=== PATIENT | female | born 1965 | race African-American/Black ===

== ENCOUNTER 2017-03-30 12:57 | Emergency (ER) | payer MEDICAID ==
[~2017-03-30] VITALS: Ht 160 cm; Wt 135.2 kg
[~2017-03-30 12:57] MED LIST: AMLO5TAB2 PO; FUR20T PO; LOSA50TA6 PO; METF-370 PO
[2017-03-30 14:11] LABS: Basophils # (auto) 0.1 uL; Basophils % (auto) 0.7 % (0.0-2.0); Eosinophils # (auto) 0.2 uL; Nucleated Red Blood Cells % 0.1 %; White Blood Cell 8.3 10^3/uL (4.4-10.8)
[2017-03-30 14:13] LABS: Eosinophils % (auto) 2.8 % (0.0-7.0); Hematocrit 35.6 % (36.0-46.0); Hemoglobin 11.5 g/dL (12.2-16.2); Mean Corpuscular Hemoglobin 20.1 pg (28.0-32.0); Mean Corpuscular Hgb Conc. 32.2 g/dL (32.0-36.0); Mean Corpuscular Volume 62.6 fL (80.0-100.0); Monocytes # (auto) 0.4 uL; Monocytes % (auto) 4.3 % (0.0-12.0); Neutrophils # (auto) 5.6 uL; Neutrophils % (auto) 68.2 % (37.0-80.0); Platelet Count (auto) 211 10^3/uL (140-450); Red Cell Distribution Width 19.3 % (11.8-14.3)
[2017-03-30 14:42] LABS: Albumin 3.2 g/dL (3.4-5.0); Alkaline Phosphatase 109 U/L (45-117); Anion Gap 8 (5-15); Aspartate Aminotransferase 10 U/L (15-37); Bilirubin, Total 0.4 mg/dL (0.2-1.0); Blood Urea Nitrogen 10 mg/dL (7-18); Calcium 8.7 mg/dL (8.5-10.1); Carbon Dioxide 23 mmol/L (21-32); Chloride 106 mmol/L (98-107); GFR African American 66 mL/min; GFR Non-African American 55 mL/min; Glucose 136 mg/dL (74-106); Magnesium 1.8 mg/dL (1.6-2.6); Potassium 3.8 mmol/L (3.5-5.1); Sodium 137 mmol/L (136-145); Total Protein 7.7 g/dL (6.4-8.2)
[2017-03-30 15:21] VITALS: BP 144/88
[2017-03-30 17:01] LABS: Anisocytosis Slight; Hypochromia Marked; Platelet Estimate Adequate
[2017-03-30 17:02] LABS: Microcytosis Marked; Ovalocytes FEW; Stomatocytes Moderate
== END 2017-03-30 15:26 | disposition home or self-care (01) ==
LOC: ER 12:57
DX: J40 Bronchitis, not specified as acute or chronic (principal); E11.9 Type 2 diabetes mellitus without complications; I10 Essential (primary) hypertension; F12.10 Cannabis abuse, uncomplicated; Z87.891 Personal history of nicotine dependence; Z90.710 Acquired absence of both cervix and uterus; Z90.89 Acquired absence of other organs
CPT/HCPCS: 36415; 71020; 80053; 83735; 84484; 85025

== ENCOUNTER 2025-05-20 16:01 | Inpatient (IN) | payer MEDICAID ==
[~2025-05-20] VITALS: Ht 160 cm; Wt 162.3 kg
[~2025-05-20 16:01] MED LIST changes: +AMLO1TAB22 PO; -AMLO5TAB2 PO; -FUR20T PO; +FURO20TA4 PO; +LOSA-534 PO; -LOSA50TA6 PO
[2025-05-20 16:42] LABS: Mean Corpuscular Volume 64.0 fL (80.0-100.0); Nucleated Red Blood Cells % 0.1 %
[2025-05-20 16:44] LABS: Hematocrit 37.7 % (36.0-46.0); Hemoglobin 11.9 g/dL (12.2-16.2); Mean Corpuscular Hemoglobin 20.2 pg (28.0-32.0)
[2025-05-20 17:12] LABS: Alanine Aminotransferase 15 U/L (7-40); Albumin 4.2 g/dL (3.2-4.8); Anion Gap 11 (5-15); BUN/Creatinine Ratio 13.6 (10.0-20.0); Blood Urea Nitrogen 19 mg/dL (9-23); Carbon Dioxide 24 mmol/L (20-31); Potassium 4.0 mmol/L (3.5-5.1); Sodium 142 mmol/L (136-145); Total Protein 7.1 g/dL (5.7-8.2)
[2025-05-20 17:13] LABS: Alkaline Phosphatase 158 U/L (46-116); Bilirubin, Total 0.7 mg/dL (0.2-1.0); Calcium 8.7 mg/dL (8.7-10.4); Chloride 107 mmol/L (98-107); Glucose 154 mg/dL (74-106)
[2025-05-20 17:16] LABS: Ovalocytes MODERATE; Stomatocytes Few
--- NOTE | 2025-05-20 17:28 | DVH ---
CHEST RADIOGRAPH Indication: CHEST PAIN Technique: Single frontal view of the chest was obtained Comparison: None FINDINGS: Lines and Tubes: None Lungs: Bilateral prominent pulmonary vascular markings. Pleura: No effusion. No pneumothorax. Cardiomediastinal contours: Cardiomegaly Bones: No acute osseous abnormality. IMPRESSION: 1. Cardiomegaly and prominent pulmonary vascular markings bilaterally correlate clinically for possible congestive failure.
--- NOTE | 2025-05-20 17:34 | ED.PDOC ---
HPI Comments 60 y/o morbidly obese F presents with c/c of shortness of breath, cough, and chest pain x5 days. Chief Complaint: Chest Pain Time Seen by MD: 17:25 Primary Care Provider: duncan Allergies: Coded Allergies: Lisinopril (Verified Allergy, Unknown, 05/20/25) Morphine (Verified Allergy, Unknown, 05/20/25) Home Meds Reported Medications Metformin Hydrochloride (Metformin Hcl) 500 Mg Tab, 1000 MG PO BID 03/11/17 Furosemide (Furosemide) 20 Mg Tab, 1 TAB PO DAILY 03/11/17 Losartan Potassium (Losartan Potassium) 50 Mg Tab, 1 TAB PO DAILY 03/11/17 Amlodipine Besylate (Amlodipine Besylate) 5 Mg Tab, 1 TAB PO DAILY 03/11/17 Information Source: Patient Mode of Arrival: Ambulatory Severity: Moderate Timing: Days Duration: Since onset Location: Substernal Onset: At Rest, With Light Exertion, With Heavy Exertion Associated Signs and Symptoms: SOB Past Medical History PAST MEDICAL HISTORY: Anemia, DM, HTN Surgical History: , Hernia Repair, Hysterectomy [employer] History: Uterine Fibroids Family History Family History: Unobtainable Social History Smoker: Non-Smoker, Quit Less Than 1 Year Alcohol: Occasionally Drugs: Marijuana Lives In: Home Constitutional: denies: chills, diaphoresis, fatigue, fever, malaise, sweats, weakness, others EENTM: denies: blurred vision, double vision, ear bleeding, ear discharge, ear drainage, ear pain, ear ringing, eye pain, eye redness, hearing loss, mouth pain, mouth swelling, nasal discharge, nose bleeding, nose congestion, nose pain, photophobia, tearing, throat pain, throat swelling, voice changes, others Respiratory: reports: SOB at rest, shortness of breath, SOB with excertion; denies: cough, hemoptysis, orthopnea, stridor, wheezing, others Cardiovascular: reports: chest pain; denies: dizzy spells, diaphoresis, Dyspnea on exertion, edema, irregular heart beat, left arm pain, lightheadedness, palpitations, PND, syncope, others Gastrointestinal: denies: abdomen distended, abdominal pain, blood streaked bowels, constipated, diarrhea, dysphagia, difficulty swallowing, hematemesis, melena, nausea, poor appetite, poor fluid intake, rectal bleeding, rectal pain, vomiting, others Genitourinary: denies: abnormal vagina bleeding, burning, dyspareunia, dysuria, flank pain, frequency, hematuria, incontinence, pain, , vagina discharge, urgency, others Neurological: denies: dizziness, fainting, headache, left sided numbness, left sided weakness, numbness, paresthesia, pre-existing deficit, right sided numbness, right sided weakness, seizure, speech problems, tingling, tremors, weakness, others Musculoskeletal: denies: back pain, gout, joint pain, joint swelling, muscle pain, muscle stiffness, neck pain, others Integumetry: denies: bruises, change in color, change in hair/nails, dryness, laceration, lesions, lumps, rash, wounds, others Allergic/Immunocompromised: denies: Difficulty Healing, Frequent Infections, Hives, Itching, others Hematologic/Lymphatic: denies: anemia, blood clots, easy bleeding, easy bruising, swollen glands, others Endocrine: denies: excessive hunger, excessive sweating, excessive thirst, excessive urination, flushing, intolerance to cold, intolerance to heat, unexplained weight gain, unexplained weight loss, others Psychiatric: denies: anxiety, bipolar disorder, depression, hopeless, panic disorder, schizophrenia, sleepless, suicidal, others All Other Systems: Reviewed and Negative Physical Exam General Appearance: Moderate Distress, Obese HEENT: Normal ENT Inspection, Pharynx Normal, TMs Normal Neck: Full Range of Motion, Non-Tender, Normal, Normal Inspection Respiratory: Other (Coarse breath sounds) Cardiovascular: No Edema, No JVD, No Murmur, No Gallop, Normal Peripheral Pulses, Regular Rate/Rhythm Breast Exam: Deferred Gastrointestinal: No Organomegaly, Non Tender, No Pulsatile Mass, Normal Bowel Sounds, Soft Genitalia: Deferred Pelvic: Deferred Rectal: Deferred Extremities: No calf tenderness, Pedal edema Musculoskeletal : Apperance: Normal Neurologic: Alert, No Motor Deficits, No Sensory Deficits Cerebellar Function: NOT DONE Reflexes: NOT DONE Skin: Normal Color Peripheral Pulses: 3+ Radial (R), 3+ Radial (L) Lymphatic: No Adenopathy Was a procedure done? Was a procedure done?: No CP Differential Dx Differential Diagnosis: A-fib, A-Flutter, Angina, Anxiety / Panic Attack, Atrial Dysrhythmia, Electrolyte Disorder Differential Diagnosis: HTN Essential Differential Diagnosis: Chest Wall Pain, Gastritis, Pneumonia X-Ray, Labs, Meds, VS Vital Signs Date Time Temp Pulse Resp B/P (MAP) Pulse Ox O2 Delivery O2 Flow Rate FiO2 05/20/25 16:15 102 05/20/25 16:03 98.4 102 20 205/106 98 98.4 Lab Test 05/20/25 17:31 05/20/25 16:27 Range/Units Troponin I High Sensitivity Pending 41 *H </=34 ng/L White Blood Count 10.9 H 4.4-10.8 10^3/uL Red Blood Count 5.89 H 4.0-5.20 10^6/uL Hemoglobin 11.9 L 12.2-16.2 g/dL Hematocrit 37.7 36.0-46.0 % Mean Corpuscular Volume 64.0 L 80.0-100.0 fL Mean Corpuscular Hemoglobin 20.2 L 28.0-32.0 pg Mean Corpuscular Hemoglobin Concent 31.5 L 32.0-36.0 g/dL Red Cell Distribution Width 19.9 H 11.8-14.3 % Platelet Count 119 L 140-450 10^3/uL Mean Platelet Volume 9.5 6.9-10.8 fL Neutrophils (%) (Auto) 66.3 37.0-80.0 % Lymphocytes (%) (Auto) 20.0 10.0-50.0 % Monocytes (%) (Auto) 5.8 0.0-12.0 % Eosinophils (%) (Auto) 7.3 H 0.0-7.0 % Basophils (%) (Auto) 0.6 0.0-2.0 % Neutrophils # (Auto) 7.2 1.6-8.6 10 ^3/uL Lymphocytes # (Auto) 2.2 0.4-5.4 10 ^3/uL Monocytes # (Auto) 0.6 0-1.3 10 ^3/uL Eosinophils # (Auto) 0.8 0-0.8 10 ^3/uL Basophils # (Auto) 0.1 0-0.2 10 ^3/uL Nucleated Red Blood Cells 0.1 % Platelet Estimate Decrea Large Platelets Few Hypochromasia (manual) Moderate Microcytosis Moderate Ovalocytes Moderate Stomatocytes Few Sodium Level 142 136-145 mmol/L Potassium Level 4.0 3.5-5.1 mmol/L Chloride Level 107 98-107 mmol/L Carbon Dioxide Level 24 20-31 mmol/L Anion Gap 11 5-15 Blood Urea Nitrogen 19 9-23 mg/dL Creatinine 1.40 H 0.550-1.02 mg/dL Glomerular Filtration Rate Calc 43 >90 mL/min BUN/Creatinine Ratio 13.6 10.0-20.0 Serum Glucose 154 H 74-106 mg/dL Calcium Level 8.7 8.7-10.4 mg/dL Total Bilirubin 0.7 0.2-1.0 mg/dL Aspartate Amino Transferase (AST) 18 13-40 U/L Alanine Aminotransferase (ALT) 15 7-40 U/L Alkaline Phosphatase 158 H 46-116 U/L Total Protein 7.1 5.7-8.2 g/dL Albumin 4.2 3.2-4.8 g/dL [place] [id number] Ph: [phone] DIAGNOSTIC IMAGING Diagnostic Imaging Report : [id number] Signed PATIENT: SHENA TRIVEDI ACCT: [id number] UNIT: [id number] : 1965 LOC: ER ROOM / BED: / AGE / SEX: 60 / F ADM STATUS: REG ER SERVICE 1602 ORDERING PHYSICIAN: SHANTAL BISHOP MD PROCEDURE(s): CXRP - CHEST PORTABLE REASON: CHEST PAIN ORDER NUMBER(s): [id number], ACCESSION NUMBER(s): [id number] CHEST RADIOGRAPH Indication: CHEST PAIN Technique: Single frontal view of the chest was obtained Comparison: None FINDINGS: Lines and Tubes: None Lungs: Bilateral prominent pulmonary vascular markings. Pleura: No effusion. No pneumothorax. Cardiomediastinal contours: Cardiomegaly Bones: No acute osseous abnormality. IMPRESSION: 1. Cardiomegaly and prominent pulmonary vascular markings bilaterally correlate clinically for possible congestive failure. Patient alert. Came in because of shortness a breath. Vitals stable. Answering questions. Chest x-ray reviewed does show CHF. Was given Lasix. Cardiac marker elevated. Was given Lovenox. Explained to the patient. Continue monitoring. Time of 1ST Reevaluation: 17:50 Reevaluation 1ST: Unchanged Patient Education/Counseling: Diagnosis, Treatment Family Education/Counseling: No Family Present SEPSIS Sepsis Screen Date sepsis recognized/suspect: May 20, 2025 Time Sepsis recognized/suspect: 1606 Recent Procedure: No On Antibiotic Therapy: No Respiratory Rate >20: No Heart Rate >90: No Temp<36 C (96.8 F) or >38.3 C: No SBP <90 or MAP <65 mmHG: No New Acute Mental Status Change: No Is the patient on CPAP, BIPAP,: No Physician Orders Chest Portable (05/20/25 16:02) Urinalysis (05/20/25 16:02) Electrocardigram (05/20/25 16:02) Troponin-I Hs (05/20/25 17:02) Troponin-I Hs (05/20/25 19:02) Electrocardigram (05/20/25 17:02) Electrocardigram (05/20/25 19:02) Vital Signs Date Time Temp Pulse Resp B/P (MAP) Pulse Ox O2 Delivery O2 Flow Rate FiO2 05/20/25 16:15 102 05/20/25 16:03 98.4 102 20 205/106 98 98.4 Laboratory Tests Test 05/20/25 16:27 White Blood Count 10.9 10^3/uL (4.4-10.8) H Departure 1 Departure Time of Disposition: 17:49 Impression: Primary Impression: Congestive heart failure Qualified Codes: I50.43 - Acute on chronic combined systolic (congestive) and diastolic (congestive) heart failure Additional Impression: Demand ischemia Disposition: 09 ADMITTED INPATIENT Admit to: Med Surg Condition: Guarded Critical Care Note Critical Care Time?: Yes (90 min-critical care time only) Stability Stability form required: No Heart Score Heart Score: Heart Score Response (Comments) Value History Slightly Suspicious 0 EKG N/A 0 Age 45-64 1 Risk Factors 1 or 2 risk factors 1 Troponin >3 x's Normal limit 2 Total 4 I personally scribed for SHANTAL BISHOP MD ([email or web address]) on 05/20/25 at 17:34. Electronically submitted by Gertrude Tovar ([facility]). I personally scribed for SHANTAL BISHOP MD ([email or web address]) on 05/20/25 at 17:34. Electronically submitted by Gertrude Tovar ([email or web address]). I personally scribed for SHANTAL BISHOP MD ([email or web address]) on 05/20/25 at 17:53. Electronically submitted by Brad Ibrahim ([email or web address]). SHANTAL BISHOP MD May 20, 2025 17:34
[2025-05-20] MEDS: ENOXAPARIN SOD 150 MG/1 ML SYRINGE SC ONE (19:07)
[2025-05-20 22:15] VITALS: PULSE 73; RESP 20; O2SAT 100
[2025-05-20] MEDS: FUROSEMIDE 40 MG/4 ML VIAL IV ONE (22:18)
[2025-05-20] MEDS ORDERED: DOCUSATE SOD 100 MG CAP PO PRN (22:30)
[2025-05-20] MEDS ORDERED: NITROGLYCERIN 0.4 MG SL TAB SL PRN (22:30)
[2025-05-20] MEDS ORDERED: MORPHINE SULFATE INJ 2 MG/ml SYRG IV PRN ×2 (22:30)
[2025-05-20] MEDS ORDERED: TEMAZEPAM 15 MG CAP PO PRN (22:30)
[2025-05-21] MEDS: HYDROcodone-ACET 5/325MG TAB PO PRN (00:19)
[2025-05-21] MEDS: hydrALAZINE HCL 20 MG/ML VL IV PRN (00:58)
[2025-05-21] MEDS: hydrALAZINE HCL 20 MG/ML VL ONE (01:11)
[2025-05-21 02:05] LABS: Urine Protein, UAD Negative (Negative)
[2025-05-21 02:33] LABS: Nucleated Red Blood Cells % 0.1 %
[2025-05-21 02:35] LABS: Hematocrit 34.3 % (36.0-46.0); Hemoglobin 10.9 g/dL (12.2-16.2); Mean Corpuscular Hemoglobin 20.0 pg (28.0-32.0); Mean Corpuscular Volume 62.6 fL (80.0-100.0)
[2025-05-21 02:52] LABS: Alanine Aminotransferase 12 U/L (7-40); Albumin 4.0 g/dL (3.2-4.8); Anion Gap 9 (5-15); BUN/Creatinine Ratio 13.1 (10.0-20.0); Bilirubin, Total 0.8 mg/dL (0.2-1.0); Blood Urea Nitrogen 16 mg/dL (9-23); Carbon Dioxide 24 mmol/L (20-31); Potassium 3.6 mmol/L (3.5-5.1); Sodium 140 mmol/L (136-145); Total Protein 7.1 g/dL (5.7-8.2)
[2025-05-21 02:55] LABS: Alkaline Phosphatase 142 U/L (46-116); Calcium 8.5 mg/dL (8.7-10.4); Chloride 107 mmol/L (98-107); Glucose 166 mg/dL (74-106)
[2025-05-21 03:21] LABS: Ovalocytes MODERATE; Stomatocytes Few
[2025-05-21] MEDS: HYDROmorphone HCL 2 MG/ML VL/or syr IV PRN (04:21)
[2025-05-21] MEDS: ONDANSETRON HCL 4 MG/2 ML VIAL IV PRN (04:21)
--- NOTE | 2025-05-21 07:12 | ECG ---
[facility] Test Date: 2025-05-20 Test Time: 16:15:27 Pat Name: SHENA TRIVEDI Department: ED Room: 0290T Gender: F Cloth Piecer: NIDIA : 1965 Requested By: SHANTAL BISHOP Order Number: [id number] Reading MD: Leonel Foss Measurements Intervals [place] Rate: 102 P: 74 IN: 166 QRS: 36 QRSD: 78 T: 63 QT: 382 QTc: 498 Interpretive Statements Sinus tachycardia Borderline prolonged QT interval Electronically Signed On 05-23-2025 15:01:07 PST by Leonel Foss Please click the below link to view image of tracing.
[2025-05-21 08:57] VITALS: BP 175/104; PULSE 79; RESP 17; TEMP 98.6; O2SAT 99
--- NOTE | 2025-05-21 09:19 | DVHINCON2 ---
Date of service: May 21, 2025 History of Present Illness HPI Patient is a 60-year-old female who presented to the hospital with shortness of breath/cough and atypical chest discomfort (pleuritic). She mentions that she came to [place] around 5 days ago. She did take a bath and walked outside and started to feel bad including shortness of breath and cough. Cough was nonproductive. She decided to come to the hospital for its worsening. She mentions that [place] has been out of state for many years. Did not have insurance at out of state and was not following with any regular physicians. Does have baseline history of hypertension and diabetes. Has not been taking any medications regularly. Cardiology is involved for cardiac aspects of care. She mentions that few years ago while in [place], she was told she may have heart failure. But when she saw a vine fruit farming supervisor, she was told that heart failure is not confirmed. Does not take medications regularly. Does smoke cigarettes and marijuana. 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 Mentions dyspnea on exertion. Mentions some leg swellings occasionally. Mentions occasional orthopnea and PND. Home Meds Reported Medications Metformin Hydrochloride (Metformin Hcl) 500 Mg Tab, 1000 MG PO BID 03/11/17 Furosemide (Furosemide) 20 Mg Tab, 1 TAB PO DAILY 03/11/17 Losartan Potassium (Losartan Potassium) 50 Mg Tab, 1 TAB PO DAILY 03/11/17 Amlodipine Besylate (Amlodipine Besylate) 5 Mg Tab, 1 TAB PO DAILY 03/11/17 Past Medical History Others Past medical history includes morbid obesity, hypertension, diabetes mellitus, old history of anemia, old history of repeated pneumonia, history of uterine fibroid/hysterectomy, status post and hernia repair. 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 There is questionable history of heart failure. Does smoke cigarettes/marijuana. Stopped meth in 2018 Family history includes hypertension and diabetes in mother and father. Father had lung cancer and mother had breast cancer. Patient Family History: Family history: Hypertension G8 MOTHER Smoker: Positive Drugs: Marijuana Review of Systems Constitutional: Diaphoresis, Weakness Ears, Nose, & Throat: No symptom reported Pulmonary/Respiratory: Dyspnea, Cough Cardiovascular: Chest Pain All Other Systems Fourteen point review of system was performed. Relevant findings as per above and as per HPI. Otherwise negative. H&P Exam Vital Signs Vital Signs Date Time Temp Pulse Resp B/P (MAP) Pulse Ox O2 Delivery O2 Flow Rate FiO2 05/21/25 08:00 Nasal Cannula* 2 28 05/21/25 08:00 98.4 92 15 158/88 (111) 100 98.4 General Appeara: Well developed, Obese Head Exam: Normal inspection Eye Exam: bilateral eye PERRL Mouth: Normal Inspection Pulmonary/Respiratory: Rales, Rhonci, Wheezing Cardiovascular/Chest: Normal inspection, Regular rate, Systolic murmur Peripheral Pulses: 2+ carotid (R), 2+ carotid (L), 2+ femoral (R), 2+ femoral (L), 2+ dorsalis pedis (R), 2+ dorsalis pedis (L) Abdominal Exam: Normal bowel sounds, Soft Neuro/Mental St: Alert, Oriented Appearance: Appropriate appearance Eye contact/ Speech: Cooperative Labs/Xrays Labs Test 05/21/25 02:12 05/21/25 01:47 05/20/25 21:07 Range/Units White Blood Count 8.4 4.4-10.8 10^3/uL Red Blood Count 5.48 H 4.0-5.20 10^6/uL Hemoglobin 10.9 L 12.2-16.2 g/dL Hematocrit 34.3 L 36.0-46.0 % Mean Corpuscular Volume 62.6 L 80.0-100.0 fL Mean Corpuscular Hemoglobin 20.0 L 28.0-32.0 pg Mean Corpuscular Hemoglobin Concent 31.9 L 32.0-36.0 g/dL Red Cell Distribution Width 19.5 H 11.8-14.3 % Platelet Count 188 140-450 10^3/uL Mean Platelet Volume 9.0 6.9-10.8 fL Neutrophils (%) (Auto) 62.5 37.0-80.0 % Lymphocytes (%) (Auto) 23.4 10.0-50.0 % Monocytes (%) (Auto) 5.3 0.0-12.0 % Eosinophils (%) (Auto) 7.8 H 0.0-7.0 % Basophils (%) (Auto) 1.0 0.0-2.0 % Neutrophils # (Auto) 5.3 1.6-8.6 10 ^3/uL Lymphocytes # (Auto) 2.0 0.4-5.4 10 ^3/uL Monocytes # (Auto) 0.4 0-1.3 10 ^3/uL Eosinophils # (Auto) 0.7 0-0.8 10 ^3/uL Basophils # (Auto) 0.1 0-0.2 10 ^3/uL Nucleated Red Blood Cells 0.1 % Platelet Estimate Adequate Large Platelets Few Hypochromasia (manual) Moderate Microcytosis Moderate Ovalocytes Moderate Stomatocytes Few Sodium Level 140 136-145 mmol/L Potassium Level 3.6 3.5-5.1 mmol/L Chloride Level 107 98-107 mmol/L Carbon Dioxide Level 24 20-31 mmol/L Anion Gap 9 5-15 Blood Urea Nitrogen 16 9-23 mg/dL Creatinine 1.22 H 0.550-1.02 mg/dL Glomerular Filtration Rate Calc 50 >90 mL/min BUN/Creatinine Ratio 13.1 10.0-20.0 Serum Glucose 166 H 74-106 mg/dL Calcium Level 8.5 L 8.7-10.4 mg/dL Total Bilirubin 0.8 0.2-1.0 mg/dL Aspartate Amino Transferase (AST) 22 13-40 U/L Alanine Aminotransferase (ALT) 12 7-40 U/L Alkaline Phosphatase 142 H 46-116 U/L Total Protein 7.1 5.7-8.2 g/dL Albumin 4.0 3.2-4.8 g/dL Urine Color Colorless Yellow Urine Clarity Clear Clear Urine pH 6.0 5.0-9.0 Urine Specific [place] 1.007 1.001-1.035 Urine Protein Negative Negative Urine Ketones Negative Negative Urine Blood Negative Negative /uL Urine Nitrite Negative Negative Urine Bilirubin Negative Negative Urine Urobilinogen Normal Negative mg/dL Urine Leukocyte Esterase Negative Negative /uL Urine RBC <1 0 - 4 /hpf Urine Microscopic WBC 0-5 /HPF Urine Squamous Epithelial Cells Few <5 /hpf Urine Bacteria None seen None Seen /hpf Urine Glucose Normal Normal mg/dL Troponin I High Sensitivity 45 *H </=34 ng/L Assessment/Plan Plan Patient is a 60-year-old female who presented to the hospital with shortness of breath/cough and atypical chest discomfort (pleuritic). She mentions that she came to [place] around 5 days ago. She did take a bath and walked outside and started to feel bad including shortness of breath and cough. Cough was nonproductive. She decided to come to the hospital for its worsening. She mentions that she has been out of state for many years. Did not have insurance at [place] state and was not following with any regular physicians. Does have baseline history of hypertension and diabetes. Has not been taking any medications regularly. Cardiology is involved for cardiac aspects of care. She mentions that few years ago while in [place], she was told she may have heart failure. But when she saw a vine fruit farming supervisor, she was told that heart failure is not confirmed. Does not take medications regularly. Does smoke cigarettes and marijuana. 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 Mentions dyspnea on ex ertion. Mentions some leg swellings occasionally. Mentions occasional orthopnea and PND. Morbidly obese. Sitting in bed and not in acute distress. No gross JVD. Mucosa is pink. No carotid bruit. Scattered rhonchi and wheezing it is heard in the lungs. Crackles can be heard in the lower part of the lungs. Cardiac: Regular, no thrill. Systolic murmur 3/6 in the apex is heard. No gross gallop. Bowel sounds are positive. No gross mass. Can not comment on the liver size secondary to body habitus. Extremities reveal 2+ edema bilaterally. Dorsalis pedis is 2+ bilateral. There was no gross lateralized neurologic deficit. Past medical history includes morbid obesity, hypertension, diabetes mellitus, old history of anemia, old history of repeated pneumonia, history of uterine fibroid/hysterectomy, status post and hernia repair. 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 There is questionable history of heart failure. Does smoke cigarettes/marijuana. Stopped meth in 2018 Family history includes hypertension and diabetes in mother and father. Father had lung cancer and mother had breast cancer. Hemoglobin: 11.9 - 10.9 WBC: 10.9 - 8.4 Creatinine: 1.4 - 1.22 Potassium: 4.0 - 3.6 Troponin (high sensitive): 41 - 44 - 45 Chest x-ray revealed: IMPRESSION: 1. Cardiomegaly and prominent pulmonary vascular markings bilaterally correlate clinically for possible congestive failure. EKG revealed sinus tachycardia with nonspecific ST-T changes Tele reveals sinus tachycardia Patient is a 60-year-old morbidly obese female who presented with 5 days of nonproductive cough. Presentation questions bronchitis. Her past history includes diabetes and noncompliance. There is questionable history of heart failure. Does not follow with physicians regularly. In exam there are findings questioning component of heart failure. High sensitive troponin has been minimally elevated (flat). Presentation is not considered ACS. Abnormal troponin most likely reflects demand physiology. Intercurrent URI could have contributed to some type of acute on chronic heart failure. Acute on chronic heart failure (what type?) URI Morbid obesity Hypertension Diabetes mellitus Noncompliance with medication and followups Cardiac suggestion for management: Manage on telemetry IV diuresis Follow-up electrolytes and kidney function tests and correct abnormalities. Keep potassium above 4 and magnesium above 2 Request for D-dimer. If D-dimer is abnormal request for CT angio of the lungs a nd venous Doppler of lower extremities. If D-dimer is normal, request for CT of the chest without contrast. Echocardiogram BNP/pro BNP Send urine for drug screen Evaluation and management of URI/bronchitis as per primary team Lifestyle and risk factor modifications. Patient was counseled to be compliant with medications and followups. Patient was counseled to avoid substance abuse Further evaluation and management depends on the above and clinical course Thank you for consultation A total of 75 minutes was spent reviewing the patient record, examining the patient, making a diagnostic and therapeutic plan, discussing this plan with medical personnel, following up on diagnostic studies and following the patient for clinical stability excluding any and all procedures. At least 50% of this time was spent in direct, [id number] contact. Thank you for allowing me to participate in this patient's care. Further recommendations will depend on patient's clinical course. Please do not hesitate to contact me if you have any questions or concerns. This medical document was created using electronic medical record system with [employer] computerized dictation system. Although this document has been carefully reviewed, there may still be some phonetic and typographical errors. These areas are purely typographical due to the imperfection of the software programs, and do not reflect any compromise in the patient's medical care. Plan discussed with: Patient, Other (nurse) SUZY SCHULTZ MD May 21, 2025 09:19
--- NOTE | 2025-05-21 09:34 | DVHHP2 ---
Patient Family History: Family history: Hypertension G8 MOTHER Allergies: Coded Allergies: Lisinopril (Verified Allergy, Unknown, 05/20/25) Morphine (Verified Allergy, Unknown, 05/20/25) Home Meds Reported Medications Metformin Hydrochloride (Metformin Hcl) 500 Mg Tab, 1000 MG PO BID 03/11/17 Furosemide (Furosemide) 20 Mg Tab, 1 TAB PO DAILY 03/11/17 Losartan Potassium (Losartan Potassium) 50 Mg Tab, 1 TAB PO DAILY 03/11/17 Amlodipine Besylate (Amlodipine Besylate) 5 Mg Tab, 1 TAB PO DAILY 03/11/17 Current Medications Current Medications Medications (Trade) Dose Ordered Sig/Neeraj Route PRN Reason Start Time Stop Time Status Last Admin Acetaminophen (Tylenol Tablet) 325 mg Q4HP PRN PO MILD PAIN (1-3 PAIN SCALE) 05/20/25 22:30 Acetaminophen/ Hydrocodone Bitart ([place] 5/325MG Tab) 1 tab Q4HP PRN PO MODERATE PAIN (4-6 PAIN SCALE) 05/20/25 22:30 05/21/25 00:19 Temazepam (Restoril) 15 mg QHSP PRN PO FOR INSOMNIA 05/20/25 22:30 Ondansetron HCl (Zofran) 4 mg Q4HP PRN IV NAUSEA / VOMITING 05/20/25 22:30 05/21/25 04:21 Docusate Sodium (Colace Capsule) 100 mg BIDPRN PRN PO FOR CONSTIPATION 05/20/25 22:30 Enoxaparin Sodium (Lovenox) 40 mg Q24H SC 05/21/25 21:00 Morphine Sulfate 2 mg Q4HPRN PRN IV SEVERE PAIN (7-10 PAIN SCALE) 05/20/25 22:30 05/21/25 00:55 DC Nitroglycerin (Ntrostat Sublingual) 0.4 mg Q5MINP PRN SL FOR CHEST PAIN 05/20/25 22:30 Morphine Sulfate 2 mg Q30M PRN IV FOR CHEST PAIN 05/20/25 22:30 05/21/25 00:55 DC Hydralazine HCl (Apresoline Injection) 10 mg Q4HPRN PRN IV SBP>160 05/21/25 01:00 05/21/25 05:06 Hydromorphone HCl (Dilaudid Injection) 0.5 mg Q4HPRN PRN IV PAIN SCALE 7 THRU 10 05/21/25 01:00 05/21/25 04:21 Furosemide (Lasix Injection) 40 mg BIDD IV 05/21/25 18:00 Losartan Potassium (Cozaar Tablet) 50 mg DAILY PO 05/21/25 10:00 Pantoprazole Sodium (Protonix Tablet) 40 mg DAILY@0600 PO 05/21/25 09:45 Vital Signs Vital Signs Date Time Temp Pulse Resp B/P (MAP) Pulse Ox O2 Delivery O2 Flow Rate FiO2 05/21/25 08:00 Nasal Cannula* 2 28 05/21/25 08:00 69 05/21/25 08:00 98.4 15 158/88 (111) 100 98.4 SEPSIS Sepsis Screen Date sepsis recognized/suspect: May 21, 2025 Time Sepsis recognized/suspect: 799 Recent Procedure: No On Antibiotic Therapy: No Respiratory Rate >20: No Heart Rate >90: No Temp<36 C (96.8 F) or >38.3 C: No SBP <90 or MAP <65 mmHG: No New Acute Mental Status Change: No Is the patient on CPAP, BIPAP,: No Physician Orders Chest Portable (05/20/25 16:02) Electrocardigram (05/20/25 17:02) Electrocardigram (05/20/25 19:02) Admit (05/20/25 22:17) Acetaminophen Tablet (Tylenol Tablet) (05/20/25 22:30) Hydrocodone-Acet 5/325mg Tab ([place] 5/32 (05/20/25 22:30) Temazepam (Restoril) (05/20/25 22:30) Ondansetron Hcl (Zofran) (05/20/25 22:30) Docusate Sodium Capsule (Colace Capsule) (05/20/25 22:30) Enoxaparin Sodium (Lovenox) (05/21/25 21:00) Cardiac Diet-2gna,Lofat,Lochol (05/21/25 Breakfast) Nitroglycerin Sublingual (Ntrostat Subli (05/20/25 22:30) Stat Ekg For Chest Pain (05/20/25 22:17) Notify Md Of Changes From Base (05/20/25 22:17) Garnett Mechanic For 24 Hours (05/20/25 22:17) Emergency Dysrhythmia Protocol (05/20/25 22:17) Rhythm Strips Once Every Shift (05/20/25 22:17) Oxygen By Nasal Cannula (05/20/25 22:17) * Cardiology Consult (05/20/25 22:18) Hydralazine Injection (Apresoline Inject (05/21/25 01:00) Hydromorphone Injection (Dilaudid Inject (05/21/25 01:00) Echo 2d Mode Cardiac Dop (05/21/25 08:58) Furosemide Injection (Lasix Injection) (05/21/25 18:00) Communication Order (05/21/25 08:58) Losartan Tablet (Cozaar Tablet) (05/21/25 10:00) Pantoprazole Tablet (Protonix Tablet) (05/21/25 09:45) Vital Signs Date Time Temp Pulse Resp B/P (MAP) Pulse Ox O2 Delivery O2 Flow Rate FiO2 05/21/25 08:00 Nasal Cannula* 2 28 05/21/25 08:00 69 05/21/25 08:00 98.4 92 15 158/88 (111) 100 98.4 05/21/25 05:06 168/89 05/21/25 05:00 78 24 168/89 (115) 95 05/21/25 04:51 77 23 168/89 05/21/25 04:21 64 14 190/96 05/21/25 03:00 78 15 157/74 (101) 97 05/21/25 01:10 71 19 195/100 (131) 100 05/21/25 00:58 199/96 05/21/25 00:29 98.0 81 32 206/89 (128) 93 98.0 05/21/25 00:29 Room Air* 0 21 05/20/25 22:26 98.0 73 20 166/111 (129) 98.0 05/20/25 22:18 166/111 05/20/25 22:15 73 20 100 Room Air* 0 21 05/20/25 21:31 98.0 89 12 160/90 (113) 99 98.0 05/20/25 18:20 97.6 91 24 217/96 (136) 100 97.6 05/20/25 18:20 91 24 100 Room Air 05/20/25 16:15 102 05/20/25 16:03 98.4 102 20 205/106 98 98.4 Laboratory Tests Test 05/20/25 16:27 05/21/25 02:12 White Blood Count 10.9 10^3/uL (4.4-10.8) H 8.4 10^3/uL (4.4-10.8) Medications Medications Dose Ordered Sig/Neeraj Route Start Time Stop Time Status Last Admin Dose Admin Acetaminophen/ Hydrocodone Bitart 1 tab Q4HP PRN PO 05/20/25 22:30 05/21/25 00:19 Hydralazine HCl 10 mg Q4HPRN PRN IV 05/21/25 01:00 05/21/25 05:06 Hydromorphone HCl 0.5 mg Q4HPRN PRN IV 05/21/25 01:00 05/21/25 04:21 Ondansetron HCl 4 mg Q4HP PRN IV 05/20/25 22:30 05/21/25 04:21 Results Labs Test 05/21/25 09:17 05/21/25 02:12 05/21/25 01:47 05/20/25 21:07 Range/Units D-Dimer, Quantitative 0.51 H 0.0-0.49 mg/L FEU B-Type Natriuretic Peptide 59.39 0-100 pg/mL White Blood Count 8.4 4.4-10.8 10^3/uL Red Blood Count 5.48 H 4.0-5.20 10^6/uL Hemoglobin 10.9 L 12.2-16.2 g/dL Hematocrit 34.3 L 36.0-46.0 % Mean Corpuscular Volume 62.6 L 80.0-100.0 fL Mean Corpuscular Hemoglobin 20.0 L 28.0-32.0 pg Mean Corpuscular Hemoglobin Concent 31.9 L 32.0-36.0 g/dL Red Cell Distribution Width 19.5 H 11.8-14.3 % Platelet Count 188 140-450 10^3/uL Mean Platelet Volume 9.0 6.9-10.8 fL Neutrophils (%) (Auto) 62.5 37.0-80.0 % Lymphocytes (%) (Auto) 23.4 10.0-50.0 % Monocytes (%) (Auto) 5.3 0.0-12.0 % Eosinophils (%) (Auto) 7.8 H 0.0-7.0 % Basophils (%) (Auto) 1.0 0.0-2.0 % Neutrophils # (Auto) 5.3 1.6-8.6 10 ^3/uL Lymphocytes # (Auto) 2.0 0.4-5.4 10 ^3/uL Monocytes # (Auto) 0.4 0-1.3 10 ^3/uL Eosinophils # (Auto) 0.7 0-0.8 10 ^3/uL Basophils # (Auto) 0.1 0-0.2 10 ^3/uL Nucleated Red Blood Cells 0.1 % Platelet Estimate Adequate Large Platelets Few Hypochromasia (manual) Moderate Microcytosis Moderate Ovalocytes Moderate Stomatocytes Few Sodium Level 140 136-145 mmol/L Potassium Level 3.6 3.5-5.1 mmol/L Chloride Level 107 98-107 mmol/L Carbon Dioxide Level 24 20-31 mmol/L Anion Gap 9 5-15 Blood Urea Nitrogen 16 9-23 mg/dL Creatinine 1.22 H 0.550-1.02 mg/dL Glomerular Filtration Rate Calc 50 >90 mL/min BUN/Creatinine Ratio 13.1 10.0-20.0 Serum Glucose 166 H 74-106 mg/dL Calcium Level 8.5 L 8.7-10.4 mg/dL Total Bilirubin 0.8 0.2-1.0 mg/dL Aspartate Amino Transferase (AST) 22 13-40 U/L Alanine Aminotransferase (ALT) 12 7-40 U/L Alkaline Phosphatase 142 H 46-116 U/L Total Protein 7.1 5.7-8.2 g/dL Albumin 4.0 3.2-4.8 g/dL Triglycerides Level 116 < 150 mg/dL Cholesterol Level 162 < 200 mg/dL LDL Cholesterol 121 H < 100 mg/dL HDL Cholesterol 29 L 40-59 mg/dL Urine Color Colorless Yellow Urine Clarity Clear Clear Urine pH 6.0 5.0-9.0 Urine Specific [place] 1.007 1.001-1.035 Urine Protein Negative Negative Urine Ketones Negative Negative Urine Blood Negative Negative /uL Urine Nitrite Negative Negative Urine Bilirubin Negative Negative Urine Urobilinogen Normal Negative mg/dL Urine Leukocyte Esterase Negative Negative /uL Urine RBC <1 0 - 4 /hpf Urine Microscopic WBC 0-5 /HPF Urine Squamous Epithelial Cells Few <5 /hpf Urine Bacteria None seen None Seen /hpf Urine Glucose Normal Normal mg/dL Urine Opiates Screen Neg NEGATIVE Urine Fentanyl Screen Neg NEGATIVE Urine Barbiturates Screen Neg NEGATIVE Urine Phencyclidine Screen Neg NEGATIVE Urine Amphetamines Screen Neg NEGATIVE Urine Benzodiazepines Screen Neg NEGATIVE Urine Cocaine Screen Neg NEGATIVE Urine Cannabinoids Screen Pos NEGATIVE Troponin I High Sensitivity 45 *H </=34 ng/L TIA GARCIA BIOCHEMISTRY TEACHER May 21, 2025 09:34
--- NOTE | 2025-05-21 09:34 | DVHPN2 ---
Progress Note - Dictate vital signs Vital Sign Date Time Temp Pulse Resp B/P (MAP) Pulse Ox O2 Delivery O2 Flow Rate FiO2 05/21/25 08:00 Nasal Cannula* 2 28 05/21/25 08:00 69 05/21/25 08:00 98.4 15 158/88 (111) 100 98.4 medications Current Medications Medications Dose Ordered Sig/Neeraj Route Start Time Stop Time Status Last Admin Dose Admin Acetaminophen 325 mg Q4HP PRN PO 05/20/25 22:30 Acetaminophen/ Hydrocodone Bitart 1 tab Q4HP PRN PO 05/20/25 22:30 05/21/25 00:19 Temazepam 15 mg QHSP PRN PO 05/20/25 22:30 Ondansetron HCl 4 mg Q4HP PRN IV 05/20/25 22:30 05/21/25 04:21 Docusate Sodium 100 mg BIDPRN PRN PO 05/20/25 22:30 Enoxaparin Sodium 40 mg Q24H SC 05/21/25 21:00 Nitroglycerin 0.4 mg Q5MINP PRN SL 05/20/25 22:30 Hydralazine HCl 10 mg Q4HPRN PRN IV 05/21/25 01:00 05/21/25 05:06 Hydromorphone HCl 0.5 mg Q4HPRN PRN IV 05/21/25 01:00 05/21/25 04:21 Furosemide 40 mg BIDD IV 05/21/25 18:00 laboratory and microbiology Laboratory Tests 05/21/25 02:12 Test 05/21/25 02:12 Range/Units Serum Glucose 166 H 74-106 mg/dL TIA GARCIA ETL BI DEVELOPER May 21, 2025 09:34
[2025-05-21] MEDS: PANTOPRAZOLE 40 MG TAB PO SCH (09:45)
[2025-05-21 09:51] LABS: Triglycerides 116 mg/dL (< 150)
[2025-05-21 09:53] LABS: Amphetamine Screen, Urine Neg (NEGATIVE); Barbiturate Scree,Urine Neg (NEGATIVE); Benzodiazephine Screen, Urine Neg (NEGATIVE); Cannabinoid Screen, Urine Pos (NEGATIVE); Cocaine Screen, Urine Neg (NEGATIVE); Opiate Scree,Urine Neg (NEGATIVE); Phencyclidine Screen, Urine Neg (NEGATIVE)
[2025-05-21 09:54] LABS: Cholesterol 162 mg/dL (< 200); HDL Cholesterol 29 mg/dL (40-59)
[2025-05-21] MEDS: LOSARTAN POTASSIUM 50 MG TAB PO SCH (10:00)
--- NOTE | 2025-05-21 11:50 | DVHHP2 ---
History of Present Illness Reason for Visit: Shortness of breaths History of Present Illness 60-year-old female comes to the hospital for 3-4 days of shortness of breaths and congestion and having a cold Cardiovascular: HTN Endocrine: Diabetes Review of Systems Respiratory: Cough, Shortness of breath Allergies: Coded Allergies: Lisinopril (Verified Allergy, Unknown, 05/20/25) Morphine (Verified Allergy, Unknown, 05/20/25) Medications Current Medications Medications Dose Ordered Sig/Neeraj Route Start Time Stop Time Status Last Admin Dose Admin Acetaminophen 325 mg Q4HP PRN PO 05/20/25 22:30 Acetaminophen/ Hydrocodone Bitart 1 tab Q4HP PRN PO 05/20/25 22:30 05/21/25 00:19 1 TAB Temazepam 15 mg QHSP PRN PO 05/20/25 22:30 Ondansetron HCl 4 mg Q4HP PRN IV 05/20/25 22:30 05/21/25 04:21 4 MG Docusate Sodium 100 mg BIDPRN PRN PO 05/20/25 22:30 Enoxaparin Sodium 40 mg Q24H SC 05/21/25 21:00 Nitroglycerin 0.4 mg Q5MINP PRN SL 05/20/25 22:30 Hydralazine HCl 10 mg Q4HPRN PRN IV 05/21/25 01:00 05/21/25 10:58 10 MG Hydromorphone HCl 0.5 mg Q4HPRN PRN IV 05/21/25 01:00 05/21/25 10:50 0.5 MG Furosemide 40 mg BIDD IV 05/21/25 18:00 Losartan Potassium 50 mg DAILY PO 05/21/25 10:00 05/21/25 10:00 50 MG Pantoprazole Sodium 40 mg DAILY@0600 PO 05/21/25 09:45 05/21/25 09:45 40 MG Exam Vital Signs Vital Signs Date Time Temp Pulse Resp B/P (MAP) Pulse Ox O2 Delivery O2 Flow Rate FiO2 05/21/25 10:58 175/104 05/21/25 10:50 79 17 05/21/25 08:00 Nasal Cannula* 2 28 05/21/25 08:00 98.4 100 98.4 General Appearance: Alert, Oriented X3, Cooperative, No acute distress Respiratory: Clear to auscultation, Normal air movement Cardiovascular: Regular rate, Normal S1, Normal S2 Abdominal: Normal bowel sounds, Soft, No tenderness Extremities: No edema Labs/Xrays Labs Test 05/21/25 09:17 05/21/25 02:12 05/21/25 01:47 05/20/25 21:07 Range/Units D-Dimer, Quantitative 0.51 H 0.0-0.49 mg/L FEU B-Type Natriuretic Peptide 59.39 0-100 pg/mL White Blood Count 8.4 4.4-10.8 10^3/uL Red Blood Count 5.48 H 4.0-5.20 10^6/uL Hemoglobin 10.9 L 12.2-16.2 g/dL Hematocrit 34.3 L 36.0-46.0 % Mean Corpuscular Volume 62.6 L 80.0-100.0 fL Mean Corpuscular Hemoglobin 20.0 L 28.0-32.0 pg Mean Corpuscular Hemoglobin Concent 31.9 L 32.0-36.0 g/dL Red Cell Distribution Width 19.5 H 11.8-14.3 % Platelet Count 188 140-450 10^3/uL Mean Platelet Volume 9.0 6.9-10.8 fL Neutrophils (%) (Auto) 62.5 37.0-80.0 % Lymphocytes (%) (Auto) 23.4 10.0-50.0 % Monocytes (%) (Auto) 5.3 0.0-12.0 % Eosinophils (%) (Auto) 7.8 H 0.0-7.0 % Basophils (%) (Auto) 1.0 0.0-2.0 % Neutrophils # (Auto) 5.3 1.6-8.6 10 ^3/uL Lymphocytes # (Auto) 2.0 0.4-5.4 10 ^3/uL Monocytes # (Auto) 0.4 0-1.3 10 ^3/uL Eosinophils # (Auto) 0.7 0-0.8 10 ^3/uL Basophils # (Auto) 0.1 0-0.2 10 ^3/uL Nucleated Red Blood Cells 0.1 % Platelet Estimate Adequate Large Platelets Few Hypochromasia (manual) Moderate Microcytosis Moderate Ovalocytes Moderate Stomatocytes Few Sodium Level 140 136-145 mmol/L Potassium Level 3.6 3.5-5.1 mmol/L Chloride Level 107 98-107 mmol/L Carbon Dioxide Level 24 20-31 mmol/L Anion Gap 9 5-15 Blood Urea Nitrogen 16 9-23 mg/dL Creatinine 1.22 H 0.550-1.02 mg/dL Glomerular Filtration Rate Calc 50 >90 mL/min BUN/Creatinine Ratio 13.1 10.0-20.0 Serum Glucose 166 H 74-106 mg/dL Calcium Level 8.5 L 8.7-10.4 mg/dL Total Bilirubin 0.8 0.2-1.0 mg/dL Aspartate Amino Transferase (AST) 22 13-40 U/L Alanine Aminotransferase (ALT) 12 7-40 U/L Alkaline Phosphatase 142 H 46-116 U/L Total Protein 7.1 5.7-8.2 g/dL Albumin 4.0 3.2-4.8 g/dL Triglycerides Level 116 < 150 mg/dL Cholesterol Level 162 < 200 mg/dL LDL Cholesterol 121 H < 100 mg/dL HDL Cholesterol 29 L 40-59 mg/dL Urine Color Colorless Yellow Urine Clarity Clear Clear Urine pH 6.0 5.0-9.0 Urine Specific [place] 1.007 1.001-1.035 Urine Protein Negative Negative Urine Ketones Negative Negative Urine Blood Negative Negative /uL Urine Nitrite Negative Negative Urine Bilirubin Negative Negative Urine Urobilinogen Normal Negative mg/dL Urine Leukocyte Esterase Negative Negative /uL Urine RBC <1 0 - 4 /hpf Urine Microscopic WBC 0-5 /HPF Urine Squamous Epithelial Cells Few <5 /hpf Urine Bacteria None seen None Seen /hpf Urine Glucose Normal Normal mg/dL Urine Opiates Screen Neg NEGATIVE Urine Fentanyl Screen Neg NEGATIVE Urine Barbiturates Screen Neg NEGATIVE Urine Phencyclidine Screen Neg NEGATIVE Urine Amphetamines Screen Neg NEGATIVE Urine Benzodiazepines Screen Neg NEGATIVE Urine Cocaine Screen Neg NEGATIVE Urine Cannabinoids Screen Pos NEGATIVE Troponin I High Sensitivity 45 *H </=34 ng/L SEPSIS Sepsis Screen Date sepsis recognized/suspect: May 21, 2025 Time Sepsis recognized/suspect: 0800 Recent Procedure: No On Antibiotic Therapy: No Respiratory Rate >20: No Heart Rate >90: No Temp<36 C (96.8 F) or >38.3 C: No SBP <90 or MAP <65 mmHG: No New Acute Mental Status Change: No Is the patient on CPAP, BIPAP,: No Physician Orders Furosemide Injection (Lasix Injection) (05/21/25 18:00) Communication Order (05/21/25 08:58) Losartan Tablet (Cozaar Tablet) (05/21/25 10:00) Pantoprazole Tablet (Protonix Tablet) (05/21/25 09:45) Vital Signs Date Time Temp Pulse Resp B/P (MAP) Pulse Ox O2 Delivery O2 Flow Rate FiO2 05/21/25 10:58 175/104 05/21/25 10:50 79 17 175/104 05/21/25 10:00 175/104 05/21/25 08:00 Nasal Cannula* 2 28 05/21/25 08:00 69 05/21/25 08:00 98.4 92 15 158/88 (111) 100 98.4 05/21/25 05:06 168/89 05/21/25 05:00 78 24 168/89 (115) 95 05/21/25 04:51 77 23 168/89 05/21/25 04:21 64 14 190/96 Laboratory Tests Test 05/21/25 02:12 White Blood Count 8.4 10^3/uL (4.4-10.8) Medications Medications Dose Ordered Sig/Neeraj Route Start Time Stop Time Status Last Admin Dose Admin Hydralazine HCl 10 mg Q4HPRN PRN IV 05/21/25 01:00 05/21/25 10:58 10 MG Hydromorphone HCl 0.5 mg Q4HPRN PRN IV 05/21/25 01:00 05/21/25 10:50 0.5 MG Losartan Potassium 50 mg DAILY PO 05/21/25 10:00 05/21/25 10:00 50 MG Pantoprazole Sodium 40 mg DAILY@0600 PO 05/21/25 09:45 05/21/25 09:45 40 MG Assessment/Plan Assessment/Plan Acute upper respiratory infection Acute bronchitis Rule out heart failure Morbid obesity Type 2 diabetes Hypertension NSTEMI type 2 Noncompliance with medications Plan IV Lasix Oxygen as needed Lovenox prophylactic dose Hydralazine p.r.n. Losartan 50 mg daily Cardiology consult Echocardiogram Give doxycycline IV Monitor closely Full code Advance directives discussed for 18 minutes Plan discussed with: Patient Date of Service: May 21, 2025 Billing Provider: MARY JO HUANG MD Common Visit Codes: [id number] INP/OBS CARE (HIGH) MARY JO HUANG MD May 21, 2025 11:50
[2025-05-21 12:52] VITALS: BP 174/91; PULSE 96; RESP 20; TEMP 98.6; O2SAT 99
--- NOTE | 2025-05-21 13:52 | DVHSR ---
APPROVED REPORT EXAM: Two-dimensional and M-mode echocardiogram with Doppler and color Doppler. Blood Pressure: 158/88 mmHg INDICATION Chest Pain RISK FACTORS Obesity: Height: 63, Weight: 308 DIMENSIONS LVDd 4.4 (3.8-5.7cm) LA (2D) 4.3 (1.9-4.0cm) Aortic Root 3.6 (2.0-3.7cm) LVDs 2.8 (2.5-4.0cm) LA (MM) (1.9-4.0cm) Aortic Cusp Exc 2.1 (1.5-2.0cm) EF (%) 65.0 (55-70%) Rt. Atrium (1.9-4.0cm) Asc. Aorta cm Mitral Valve Mitral Mitral Stenosis E wave 0.93m/s MV Mean GR. mmHg A wave 1.08m/s MV Peak GR. mmHg E/A ratio 0.9 2D MVA cm2 DECEL Time 179ms PRESS 1/2 Time 52ms IVRT ms Dop MVA 4.20cm2 Aortic Valve Aortic Valve Aortic Stenosis V1 1.41m/s AO Mean GR. 7mmHg V2 1.81m/s AO Peak GR. 13mmHg LVOT Diameter 2.0 (1.8-2.4cm) Doppler OPAL 2.45cm2 Other Information Technically limited study due to body habitus. Conclusion Left ventricle: Mild concentric left ventricular hypertrophy was seen. LVEF was around 65%. Abnormal relaxation of left ventricular diastolic function was observed. There was no gross wall motion abnormality. Right ventricle was mildly dilated with normal systolic function. Both atria were mildly dilated. Aortic valve was trileaflet. There was no aortic insufficiency/stenosis. There was trace mitral/tricuspid regurgitation. Pulmonary valve did not reveal any insufficiency/stenosis. As there was no good tricuspid regurgitation jet, right ventricular systolic pressure could not be estimated. There was small pericardial effusion.
--- NOTE | 2025-05-21 14:45 | DVH ---
US BiLat Lower DVT History: rule out bilateral lower extremity DVT Comparison: None Technique: Realtime grayscale, color flow, and Doppler ultrasound images of the deep venous structures with spectral waveform analysis were obtained. Doppler spectral waveform analysis of the bilateral lower extremity veins was performed. Findings: Right Lower Extremity: Right common femoral vein: Normal compressibility and flow. Right femoral vein: Normal compressibility and flow. Right popliteal vein: Not well seen. Left Lower Extremity: Left common femoral vein: Not well-visualized. Left femoral vein: Normal compressibility and flow. Left popliteal vein: Normal compressibility and flow. IMPRESSION: Limited study due to patient body habitus. The right popliteal vein and left common femoral vein not well-visualized. Given this limitation, no DVT seen in the other visualized veins.
[2025-05-21] MEDS: DOXYCYCLINE 100MG/100ML 100 ML IV SCH (16:00)
[2025-05-21 17:14] VITALS: BP 195/99; PULSE 100; RESP 20; TEMP 98.6; O2SAT 98
[2025-05-21] MEDS: FUROSEMIDE 40 MG/4 ML VIAL IV SCH (18:10)
[2025-05-21] MEDS: LOSARTAN POTASSIUM 50 MG TAB PO ONE (19:54)
[2025-05-21 20:00] VITALS: PULSE 99; RESP 19; O2SAT 99
[2025-05-21] MEDS: ENOXAPARIN SOD 40 MG/0.4 ML SYRINGE SC SCH (20:20)
[2025-05-21 21:00] VITALS: BP 170/82; PULSE 88; RESP 19; TEMP 99.4; O2SAT 99
[2025-05-22] VITALS (8 sets, daily range): BP systolic 118–152; BP diastolic 46–97; PULSE 70–87; RESP 17–20; TEMP 97.3–98.9; O2SAT 95–100
[2025-05-22 06:05] LABS: Hemoglobin 10.9 g/dL (12.2-16.2)
[2025-05-22 06:08] LABS: Hematocrit 34.5 % (36.0-46.0); Mean Corpuscular Hemoglobin 19.9 pg (28.0-32.0); Mean Corpuscular Volume 63.0 fL (80.0-100.0); Nucleated Red Blood Cells % 0.1 %
[2025-05-22 06:20] LABS: Alanine Aminotransferase < 9 U/L (7-40); Albumin 3.7 g/dL (3.2-4.8); Alkaline Phosphatase 129 U/L (46-116); Anion Gap 9 (5-15); BUN/Creatinine Ratio 12.5 (10.0-20.0); Blood Urea Nitrogen 22 mg/dL (9-23); Calcium 8.2 mg/dL (8.7-10.4); Carbon Dioxide 24 mmol/L (20-31); Chloride 103 mmol/L (98-107); Glucose 199 mg/dL (74-106); Potassium 4.3 mmol/L (3.5-5.1); Sodium 136 mmol/L (136-145); Total Protein 7.0 g/dL (5.7-8.2)
[2025-05-22 06:21] LABS: Bilirubin, Total 0.7 mg/dL (0.2-1.0)
[2025-05-22 06:54] LABS: Ovalocytes FEW
[2025-05-22] MEDS: IOHEXOL 350 MG/ML 100ML IJ ONE ×2 (07:36→11:17)
--- NOTE | 2025-05-22 08:24 | DVHPN2 ---
Progress Note - Dictate Date Seen: May 22, 2025 Medical Necessity Reason Pt with a Central, PICC or Fol: No vital signs Vital Sign Date Time Temp Pulse Resp B/P (MAP) Pulse Ox O2 Delivery O2 Flow Rate FiO2 05/22/25 06:01 151/79 05/22/25 05:00 98.4 72 17 98 98.4 05/21/25 20:00 Nasal Cannula* 2 28 Total Intake and Output 05/21/25 05/21/25 05/22/25 15:00 23:00 07:00 Intake Total 1100 ml 1540 ml Balance 1100 ml 1540 ml medications Current Medications Medications Dose Ordered Sig/Neeraj Route Start Time Stop Time Status Last Admin Dose Admin Acetaminophen 325 mg Q4HP PRN PO 05/20/25 22:30 Acetaminophen/ Hydrocodone Bitart 1 tab Q4HP PRN PO 05/20/25 22:30 05/21/25 00:19 1 TAB Temazepam 15 mg QHSP PRN PO 05/20/25 22:30 Ondansetron HCl 4 mg Q4HP PRN IV 05/20/25 22:30 05/21/25 04:21 4 MG Docusate Sodium 100 mg BIDPRN PRN PO 05/20/25 22:30 Enoxaparin Sodium 40 mg Q24H SC 05/21/25 21:00 05/21/25 20:20 40 MG Nitroglycerin 0.4 mg Q5MINP PRN SL 05/20/25 22:30 Hydralazine HCl 10 mg Q4HPRN PRN IV 05/21/25 01:00 05/21/25 10:58 10 MG Hydromorphone HCl 0.5 mg Q4HPRN PRN IV 05/21/25 01:00 05/22/25 02:22 0.5 MG Furosemide 40 mg BIDD IV 05/21/25 18:00 05/22/25 06:01 40 MG Losartan Potassium 50 mg DAILY PO 05/21/25 10:00 05/21/25 10:00 50 MG Pantoprazole Sodium 40 mg DAILY@0600 PO 05/21/25 09:45 05/22/25 05:55 40 MG Doxycycline Hyclate 100 ml @ 50 mls/hr Q12H IV 05/21/25 12:00 05/22/25 00:39 50 MLS/HR Losartan Potassium 100 mg DAILY PO 05/22/25 10:00 Amlodipine Besylate 5 mg DAILY PO 05/22/25 10:00 laboratory and microbiology Laboratory Tests 05/22/25 05:26 Test 05/22/25 05:26 Range/Units Serum Glucose 199 H 74-106 mg/dL Assessment/Plan Patient is a 60-year-old female who presented to the hospital with shortness of breath/cough and atypical chest discomfort (pleuritic). She mentions that she came to [place] around 5 days ago. She did take a bath and walked outside and started to feel bad including shortness of breath and cough. Cough was nonproductive. She decided to come to the hospital for its worsening. She mentions that she has been out of state for many years. Did not have insurance at out of state and was not following with any regular physicians. Does have baseline history of hypertension and diabetes. Has not been taking any medications regularly. Cardiology is involved for cardiac aspects of care. She mentions that few years ago while in [place], she was told she may have heart failure. But when she saw a box printer, she was told that heart failure is not confirmed. Does not take medications regularly. Does smoke cigarettes and marijuana. 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 Mentions dyspnea on exertion. Mentions some leg swellings occasionally. Mentions occasional orthopnea and PND. Morbidly obese. Sitting in bed and not in acute distress. No gross JVD. Mucosa is pink. No carotid bruit. Scattered rhonchi and wheezing it is heard in the lungs. Crackles can be heard in the lower part of the lungs. Cardiac: Regular, no thrill. Systolic murmur 3/6 in the apex is heard. No gross gallop. Bowel sounds are positive. No gross mass. Can not comment on the liver size secondary to body habitus. Extremities reveal 2+ edema bilaterally. Dorsalis pedis is 2+ bilateral. There was no gross lateralized neurologic deficit. Past medical history includes morbid obesity, hypertension, diabetes mellitus, old history of anemia, old history of repeated pneumonia, history of uterine fibroid/hysterectomy, status post and hernia repair. 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 There is questionable history of heart failure. Does smoke cigarettes/marijuana. Stopped meth in 2018 Is allergic to Lisinopril Family history includes hypertension and diabetes in mother and father. Father had lung cancer and mother had breast cancer. Hemoglobin: 11.9 - 10.9 - 10.9 WBC: 10.9 - 8.4 - 8.4 Creatinine: 1.4 - 1.22 - 1.76 Potassium: 4.0 - 3.6 - 4.3 Troponin (high sensitive): 41 - 44 - 45 BNP: 59.39 D-Dimer: 0.51 TSH: 0.69 UDS was positive for Cannabinoids Chest x-ray revealed: IMPRESSION: 1. Cardiomegaly and prominent pulmonary vascular markings bilaterally correlate clinically for possible congestive failure. Venous duplex of lower ext revealed: IMPRESSION: Limited study due to patient body habitus. The right popliteal vein and left common femoral vein not well- visualized. Given this limitation, no DVT seen in the other visualized veins. EKG revealed sinus tachycardia with nonspecific ST-T changes Tele reveals sinus tachycardia Echocardiogram revealed: Left ventricle: Mild concentric left ventricular hypertrophy was seen. LVEF was around 65%. Abnormal relaxation of left ventricular diastolic function was observed. There was no gross wall motion abnormality. Right ventricle was mildly dilated with normal systolic function. Both atria were mildly dilated. Aortic valve was trileaflet. There was no aortic insufficiency/stenosis. There was trace mitral/tricuspid regurgitation. Pulmonary valve did not reveal any insufficiency/stenosis. As there was no good tricuspid regurgitation jet, right ventricular systolic pressure could not be estimated. There was small pericardial effusion. Patient is a 60-year-old morbidly obese female who presented with 5 days of nonproductive cough. Presentation questions bronchitis. Her past history includes diabetes and noncompliance. There is questionable history of heart failure. Does not follow with physicians regularly. In exam there are findings questioning component of heart failure. High sensitive troponin has been minimally elevated (flat). Presentation is not considered ACS. Abnormal troponin most likely reflects demand physiology. Intercurrent URI could have contributed to some type of acute on chronic heart failure. May have some component of D-CHF. D-dimer was abnormal. Creat is increased. Acute on chronic heart failure (what type?) URI Morbid obesity Hypertension Diabetes mellitus Noncompliance with medication and followups Abnormal D-Dimer Cardiac suggestion for management: Manage on telemetry Diuresis Follow-up electrolytes and kidney function tests and correct abnormalities. Keep potassium above 4 and magnesium above 2 Request for HgbA1c. If abnormal, you may consider adding Jardiance Awaiting CTA of lungs Evaluation and management of URI/bronchitis as per primary team Lifestyle and risk factor modifications. Patient was counseled to be compliant with medications and followups. Patient was counseled to avoid substance abuse Further evaluation and management depends on the above and clinical course A total of 55 minutes was spent reviewing the patient record, examining the patient, making a diagnostic and therapeutic plan, discussing this plan with medical personnel, following up on diagnostic studies and following the patient for clinical stability excluding any and all procedures. At least 50% of this time was spent in direct, [id number] contact. Thank you for allowing me to participate in this patient's care. Further recommendations will depend on patient's clinical course. Please do not hesitate to contact me if you have any questions or concerns. This medical document was created using electronic medical record system with [employer] computerized dictation system. Although this document has been carefully reviewed, there may still be some phonetic and typographical errors. These areas are purely typographical due to the imperfection of the software programs, and do not reflect any compromise in the patient's medical care. Plan discussed with: Patient, Other (nurse) SUZY SCHULTZ MD May 22, 2025 08:24
--- NOTE | 2025-05-22 08:40 | DVH ---
CLINICAL INFORMATION: Rule out pulmonary embolism. TECHNIQUE: Axial CTA images of the chest were obtained after the uneventful administration of 100 mL of Omnipaque 350 IV contrast. Coronal and sagittal reformatted images and MIP images were obtained, reviewed, and stored. One or more of the following dose reduction techniques were used: Automated exposure control. Adjustment of mA and/or kV according to patient size. CTDIvol = 29.2 mGy DLP = 981.73 mGy-cm COMPARISON: XY CHEST PORTABLE on DOS: 05/20/25 FINDINGS: Pulmonary arteries: Examination is nondiagnostic for pulmonary embolism due to suboptimal contrast opacification of the pulmonary arteries. No large central pulmonary embolism visualized. Respiratory motion artifact in artifact associated with body habitus also limit evaluation for pulmonary emboli. Aorta: No aneurysm or visualized evidence of dissection given the limitations of the Examination. Cardiac: Heart size is within normal limits. Moderate coronary artery calcification. Mediastinum/leidy: Mildly prominent right lower paratracheal lymph node measures up to 1.6 x 1.3 cm, most likely reactive. Additional smaller mediastinal lymph nodes are seen. Lungs: Respiratory motion artifact limits evaluation. Scattered areas of subsegmental atelectasis are seen. No dense focal consolidation. No pneumothorax or pleural effusion. Subtle areas of ground-glass attenuation are seen, may be partly due to motion artifact. Infectious or inflammatory etiology or mild edema not excluded. 5 mm nodule in the right lower lobe (series 3 image 74). Chest wall: Visualized portions of the chest wall appear grossly unremarkable. Upper abdomen: Visualized structures in the upper abdomen are unremarkable, although evaluation of the parenchymal organs is limited on arterial phase images. Bones: No acute fracture or suspicious intraosseous lesions. IMPRESSION: 1. Nondiagnostic examination for pulmonary embolism due to the reasons described above. No large central pulmonary embolism visualized given the limitations of the examination. 2. Scattered areas of ground-glass attenuation, may be partially due to artifact. Infectious or inflammatory etiology or pulmonary edema not excluded. 3. 5 mm pulmonary nodule in the right lower lobe. Per Fleischner society recommendations, correlation with risk factors for lung cancer recommended. If the patient is high risk, 12 month follow-up CT could be considered. 4. Mildly prominent mediastinal lymph nodes, most likely reactive. Correlate with clinical findings. 5. Additional findings as described above.
[2025-05-22] MEDS: LOSARTAN POTASSIUM 50 MG TAB PO SCH (09:17)
--- NOTE | 2025-05-22 12:37 | DVH ---
Indication: rule out pulmonary emboli Technique: CT axial images of the chest are obtained with intravenous contrast per CT angiogram protocol. Coronal and sagittal reformats were obtained. Radiation Dose Information: CTDI volume is 29.2 mGy. Dose-length product is 1114.63 mGy*cm Comparison: CT CT ANGIO CHEST CONTRAST on DOS: 05/22/25 FINDINGS: No filling defect in the main left and right pulmonary arteries. Segmental and subsegmental branches suboptimally characterized, no definitive defect identified. The trachea is patent. There is no pneumothorax 4 mm right upper lobe pulmonary nodule. 3 mm right upper lobe pulmonary nodule. 5 mm right lower lobe pulmonary nodule. 3 mm right middle lobe nodule. 4 mm right middle lobe pulmonary nodule. Bilateral atelectasis. No pleural effusion. Cardiomegaly. Pretracheal lymph node measuring 14 mm. No supraclavicular or axillary lymphadenopathy. No aggressive osseous process. Moderate to Some enhanced Thoracic degenerative disc disease IMPRESSION: No evidence for large pulmonary embolism. Pulmonary nodules up to 5 mm. Recommend follow-up per Fleischner society criteria. Cardiomegaly. Mediastinal lymphadenopathy which can be secondary to infectious, inflammatory, neoplastic etiologies. Other findings as described.
--- NOTE | 2025-05-22 17:14 | DVHPN2 ---
Subjective having some sinus congestion Reviewed: H&P Changes from previous H/P or p: No Changes Respiratory: Cough, Shortness of breath Objective Vitals Vital Signs Date Time Temp Pulse Resp B/P (MAP) Pulse Ox O2 Delivery O2 Flow Rate FiO2 05/22/25 17:08 97.6 81 17 147/83 (104) 96 97.6 05/21/25 20:00 Nasal Cannula* 2 28 Intake/Output Intake and Output 05/22/25 05:00 Intake Total 2640 ml Balance 2640 ml Intake Oral 2540 ml IV Total 100 ml # Voids 7 General Appearance: Alert, Oriented X3 Cardiovascular: Regular rate, Normal S1, Normal S2 Abdomen: Normal bowel sounds Medications Current Medications Medications Dose Ordered Sig/Neeraj Route Start Time Stop Time Status Last Admin Dose Admin Acetaminophen 325 mg Q4HP PRN PO 05/20/25 22:30 Acetaminophen/ Hydrocodone Bitart 1 tab Q4HP PRN PO 05/20/25 22:30 05/21/25 00:19 1 TAB Temazepam 15 mg QHSP PRN PO 05/20/25 22:30 Ondansetron HCl 4 mg Q4HP PRN IV 05/20/25 22:30 05/21/25 04:21 4 MG Docusate Sodium 100 mg BIDPRN PRN PO 05/20/25 22:30 Enoxaparin Sodium 40 mg Q24H SC 05/21/25 21:00 05/21/25 20:20 40 MG Nitroglycerin 0.4 mg Q5MINP PRN SL 05/20/25 22:30 Hydralazine HCl 10 mg Q4HPRN PRN IV 05/21/25 01:00 05/22/25 14:02 10 MG Hydromorphone HCl 0.5 mg Q4HPRN PRN IV 05/21/25 01:00 05/22/25 13:03 0.5 MG Furosemide 40 mg BIDD IV 05/21/25 18:00 05/22/25 06:01 40 MG Pantoprazole Sodium 40 mg DAILY@0600 PO 05/21/25 09:45 05/22/25 05:55 40 MG Doxycycline Hyclate 100 ml @ 50 mls/hr Q12H IV 05/21/25 12:00 05/22/25 12:00 50 MLS/HR Losartan Potassium 100 mg DAILY PO 05/22/25 10:00 05/22/25 09:17 100 MG Amlodipine Besylate 5 mg DAILY PO 05/22/25 10:00 05/22/25 09:18 5 MG Laboratory Results Laboratory Tests 05/22/25 05:26 Chemistry Test 05/22/25 05:26 Albumin 3.7 g/dL (3.2-4.8) Calcium Level 8.2 mg/dL (8.7-10.4) L Total Protein 7.0 g/dL (5.7-8.2) LFT Test 05/22/25 05:26 Alanine Aminotransferase (ALT) < 9 U/L (7-40) Alkaline Phosphatase 129 U/L (46-116) H Aspartate Amino Transferase (AST) 13 U/L (13-40) Total Bilirubin 0.7 mg/dL (0.2-1.0) HgA1c, TSH Test 05/22/25 05:26 Thyroid Stimulating Hormone (TSH) 0.69 uIU/mL (0.55-4.78) Urinalysis Test 05/21/25 01:47 Urine Color Colorless (Yellow) Urine Clarity Clear (Clear) Urine pH 6.0 (5.0-9.0) Urine Specific [place] 1.007 (1.001-1.035) Urine Protein Negative (Negative) Urine Ketones Negative (Negative) Urine Blood Negative /uL (Negative) Urine Nitrite Negative (Negative) Urine Bilirubin Negative (Negative) Urine Urobilinogen Normal mg/dL (Negative) Urine Leukocyte Esterase Negative /uL (Negative) Urine RBC <1 /hpf (0 - 4) Urine Microscopic WBC /HPF (0-5) Urine Squamous Epithelial Cells Few /hpf (<5) Urine Bacteria None seen /hpf (None Seen) Urine Glucose Normal mg/dL (Normal) Assessment/Plan Assessment/Plan Acute upper respiratory infection Acute bronchitis Rule out heart failure Morbid obesity Type 2 diabetes Hypertension NSTEMI type 2 Noncompliance with medications Continue IV abx nasal Echo pending Plan discussed with: Patient Date of Service: May 22, 2025 Billing Provider: CAMERON BARNES MD Common Visit Codes: [id number] INP/OBS CARE(HIGH) CAMERON BARNES MD May 22, 2025 17:14
--- NOTE | 2025-05-22 21:06 | DVHINCON2 ---
Date of service: May 22, 2025 Referring Physician Epifanio Head MD Reason for Consultation Multiple pulmonary nodules. History of Present Illness A 60-year-old woman with past medical history of hypertension and diabetes mellitus who presented to the ED on 05/10/25 with c/o 3-4 days of shortness of breath and congestion; cold symptoms. Patient also c/o atypical chest discomfort (pleuritic) and nonproductive cough. She mentioned that she had been [place] of state for many years and was not following with any regular physicians due to lack of insurance. She does not take any medications regularly. Pt does smoke cigarettes and marijuana; reports she stopped meth in 2018. Pt admitted to dyspnea on exertion, occasional leg swelling and occasional orthopnea and PND. Patient was admitted for further care. Pulmonary consultation is requested for evaluation and management of dyspnea, CT angio chest demonstrating multiple pulmonary nodules. Review of Systems: 14-point review of systems negative unless otherwise noted above. Past Medical History: Hypertension and diabetes mellitus Past Surgical History: None Medications: Reviewed. Allergies: Lisinopril Morphine Family History: Hypertension Lung cancer Malignant neoplasm of breast Social History: Nonsmoker. No alcohol or illicit drug use. Family History: Family history: Hypertension G8 MOTHER Lung cancer G8 FATHER Malignant neoplasm of breast G8 MOTHER Allergies: Coded Allergies: Lisinopril (Verified Allergy, Unknown, 05/20/25) Morphine (Verified Allergy, Unknown, 05/20/25) Home Meds Reported Medications Metformin Hydrochloride (Metformin Hcl) 500 Mg Tab, 1000 MG PO BID 03/11/17 Furosemide (Furosemide) 20 Mg Tab, 1 TAB PO DAILY 03/11/17 Losartan Potassium (Losartan Potassium) 50 Mg Tab, 1 TAB PO DAILY 03/11/17 Amlodipine Besylate (Amlodipine Besylate) 5 Mg Tab, 1 TAB PO DAILY 03/11/17 Current Medications Current Medications Medications (Trade) Dose Ordered Sig/Neeraj Route PRN Reason Start Time Stop Time Status Last Admin Losartan Potassium (Cozaar Tablet) 100 mg DAILY PO 05/22/25 10:00 05/22/25 09:17 Amlodipine Besylate (Norvasc Tablet) 5 mg DAILY PO 05/22/25 10:00 05/22/25 09:18 Fluticasone Propionate (Flonase [place]) 50 mcg Q12HR EACHNOSTRI 05/22/25 22:00 Vital Signs Vital Signs Date Time Temp Pulse Resp B/P (MAP) Pulse Ox O2 Delivery O2 Flow Rate FiO2 05/22/25 17:08 97.6 81 17 147/83 (104) 96 97.6 05/22/25 08:00 Nasal Cannula* 2 28 Physical Exam Gen.: Patient lying in bed in no apparent distress. Breathing on room air. Head: Normocephalic, atraumatic. Eyes: EOMI/PERRLA. Ears: Normal hearing. Normal anatomy. Neck/trachea: Trachea midline, supple. Nose: Normal external anatomy. Mouth: Moist mucous membranes. Chest: Decreased air entry bilaterally. No wheezing or rhonchi. Cardiovascular: Positive S1, positive S2. Regular rate and rhythm. Abdomen: Positive bowel sounds in all 4 quadrants. Soft, non-tender, non- distended. : Deferred. Rectal: Deferred. Skin: Warm, dry. Intact. Extremities: 2+ radial pulses bilaterally. No lower extremity edema. Neuro: Awake, alert, oriented x3. No gross motor or sensory deficits. Cranial nerves II through XII intact. Gait not assessed. Labs/Diagnostic Data Labs Test 05/22/25 05:26 05/21/25 09:17 05/21/25 02:12 05/21/25 01:47 Range/Units White Blood Count 8.4 4.4-10.8 10^3/uL Red Blood Count 5.47 H 4.0-5.20 10^6/uL Hemoglobin 10.9 L 12.2-16.2 g/dL Hematocrit 34.5 L 36.0-46.0 % Mean Corpuscular Volume 63.0 L 80.0-100.0 fL Mean Corpuscular Hemoglobin 19.9 L 28.0-32.0 pg Mean Corpuscular Hemoglobin Concent 31.6 L 32.0-36.0 g/dL Red Cell Distribution Width 20.1 H 11.8-14.3 % Platelet Count 213 140-450 10^3/uL Mean Platelet Volume 9.3 6.9-10.8 fL Neutrophils (%) (Auto) 59.2 37.0-80.0 % Lymphocytes (%) (Auto) 28.6 10.0-50.0 % Monocytes (%) (Auto) 6.9 0.0-12.0 % Eosinophils (%) (Auto) 4.5 0.0-7.0 % Basophils (%) (Auto) 0.8 0.0-2.0 % Neutrophils # (Auto) 5.0 1.6-8.6 10 ^3/uL Lymphocytes # (Auto) 2.4 0.4-5.4 10 ^3/uL Monocytes # (Auto) 0.6 0-1.3 10 ^3/uL Eosinophils # (Auto) 0.4 0-0.8 10 ^3/uL Basophils # (Auto) 0.1 0-0.2 10 ^3/uL Nucleated Red Blood Cells 0.1 % Platelet Estimate [place] Large Platelets Few Hypochromasia (manual) Moderate Microcytosis Moderate Ovalocytes Few Sodium Level 136 136-145 mmol/L Potassium Level 4.3 3.5-5.1 mmol/L Chloride Level 103 98-107 mmol/L Carbon Dioxide Level 24 20-31 mmol/L Anion Gap 9 5-15 Blood Urea Nitrogen 22 9-23 mg/dL Creatinine 1.76 #H 0.550-1.02 mg/dL Glomerular Filtration Rate Calc 33 >90 mL/min BUN/Creatinine Ratio 12.5 10.0-20.0 Serum Glucose 199 H 74-106 mg/dL Calcium Level 8.2 L 8.7-10.4 mg/dL Total Bilirubin 0.7 0.2-1.0 mg/dL Aspartate Amino Transferase (AST) 13 13-40 U/L Alanine Aminotransferase (ALT) < 9 7-40 U/L Alkaline Phosphatase 129 H 46-116 U/L Total Protein 7.0 5.7-8.2 g/dL Albumin 3.7 3.2-4.8 g/dL Thyroid Stimulating Hormone (TSH) 0.69 0.55-4.78 uIU/mL D-Dimer, Quantitative 0.51 H 0.0-0.49 mg/L FEU B-Type Natriuretic Peptide 59.39 0-100 pg/mL Stomatocytes Few Triglycerides Level 116 < 150 mg/dL Cholesterol Level 162 < 200 mg/dL LDL Cholesterol 121 H < 100 mg/dL HDL Cholesterol 29 L 40-59 mg/dL Urine Color Colorless Yellow Urine Clarity Clear Clear Urine pH 6.0 5.0-9.0 Urine Specific [employer] [place] 1.007 1.001-1.035 Urine Protein Negative Negative Urine Ketones Negative Negative Urine Blood Negative Negative /uL Urine Nitrite Negative Negative Urine Bilirubin Negative Negative Urine Urobilinogen Normal Negative mg/dL Urine Leukocyte Esterase Negative Negative /uL Urine RBC <1 0 - 4 /hpf Urine Microscopic WBC 0-5 /HPF Urine Squamous Epithelial Cells Few <5 /hpf Urine Bacteria None seen None Seen /hpf Urine Glucose Normal Normal mg/dL Urine Opiates Screen Neg NEGATIVE Urine Fentanyl Screen Neg NEGATIVE Urine Barbiturates Screen Neg NEGATIVE Urine Phencyclidine Screen Neg NEGATIVE Urine Amphetamines Screen Neg NEGATIVE Urine Benzodiazepines Screen Neg NEGATIVE Urine Cocaine Screen Neg NEGATIVE Urine Cannabinoids Screen Pos NEGATIVE Test 05/20/25 21:07 Range/Units Troponin I High Sensitivity 45 *H </=34 ng/L Assessment Impression: Acute bronchitis Pulmonary nodules, multiple largest 5 mm in size Enlarged Mediastinal lymphnode Atelectasis Mediastinal lymphadenopathy NSTEMI type 2 Super morbid obesity, BMI 64.2 Noncompliance with medications Seasonal allergies Plan: Supplemental oxygen PRN Titrate to keep O2 sats above 92%. CT angio chest demonstrates no e/o pulmonary embolism. Multiple pulmonary nodules measuring up to 5 mm. Cardiomegaly. Mediastinal lymphadenopathy and bilateral atelectasis. No pleural effusion. Flonase for seasonal allergies Continue antibiotics Incentive spirometry d/t atelectasis Blood pressure control Follow up Cardiology recommendations Monitor renal function. Monitor electrolytes. Supplement as necessary. Monitor ins and outs. Pain control Avoid oversedation Antiemetic PRN. Recommend diet and lifestyle modifications for weight reduction Morbid obesity complicates all care Patient counseled on adherence to therapy and compliance with medications. GI/DVT prophylaxis. Prognosis: Poor given patient's multiple co-morbidities. Rest of plan per hospitalist and other consultants. Thank you, Dr. Head, for allowing me to participate in this patient's care. Further recommendations will depend on the patient's clinical course. Please do not hesitate to contact me if you have any questions or concerns. This medical document was created using an electronic medical record system with [employer] dictation system. Although these documentations are being carefully reviewed, there may still be some phonetic and typographical changes. The errors are purely typographical, due to imperfection on the software program, and do not reflect any compromise in the patient's medical care. Plan discussed with: Patient, Other ([place]/Dr. Head) Visit Coding Pulmonary Billing Provider: WARREN PARR MD Date of Service if different f: May 22, 2025 Common Visit Codes: [id number] INP/OBS CARE (HIGH) WARREN PARR MD May 22, 2025 21:05
[2025-05-22] MEDS: FLUTICASONE PROP NASAL SPR 0.05 % (50MCG) 16GM EACHNOSTRI SCH (22:29)
[2025-05-23] VITALS (8 sets, daily range): BP systolic 92–171; BP diastolic 60–90; PULSE 71–83; RESP 18–23; TEMP 97.2–98.4; O2SAT 95–100
[2025-05-23] MEDS: ACETAMINOPHEN 325 MG TAB PO PRN (02:14)
--- NOTE | 2025-05-23 08:14 | DVHPN2 ---
Progress Note - Dictate Date Seen: May 23, 2025 Medical Necessity Reason Pt with a Central, PICC or Fol: No vital signs Vital Sign Date Time Temp Pulse Resp B/P (MAP) Pulse Ox O2 Delivery O2 Flow Rate FiO2 05/23/25 05:00 97.4 77 20 171/90 (117) 99 97.4 05/22/25 20:00 Nasal Cannula* 2 28 Total Intake and Output 05/22/25 05/22/25 05/23/25 15:00 23:00 07:00 Intake Total 500 ml 580 ml Balance 500 ml 580 ml medications Current Medications Medications Dose Ordered Sig/Neeraj Route Start Time Stop Time Status Last Admin Dose Admin Acetaminophen 325 mg Q4HP PRN PO 05/20/25 22:30 05/23/25 02:14 325 MG Acetaminophen/ Hydrocodone Bitart 1 tab Q4HP PRN PO 05/20/25 22:30 05/22/25 17:36 1 TAB Temazepam 15 mg QHSP PRN PO 05/20/25 22:30 Ondansetron HCl 4 mg Q4HP PRN IV 05/20/25 22:30 05/21/25 04:21 4 MG Docusate Sodium 100 mg BIDPRN PRN PO 05/20/25 22:30 Enoxaparin Sodium 40 mg Q24H SC 05/21/25 21:00 05/22/25 22:27 40 MG Nitroglycerin 0.4 mg Q5MINP PRN SL 05/20/25 22:30 Hydralazine HCl 10 mg Q4HPRN PRN IV 05/21/25 01:00 05/22/25 14:02 10 MG Hydromorphone HCl 0.5 mg Q4HPRN PRN IV 05/21/25 01:00 05/22/25 22:29 0.5 MG Furosemide 40 mg BIDD IV 05/21/25 18:00 05/22/25 06:01 40 MG Pantoprazole Sodium 40 mg DAILY@0600 PO 05/21/25 09:45 05/23/25 05:13 40 MG Doxycycline Hyclate 100 ml @ 50 mls/hr Q12H IV 05/21/25 12:00 05/23/25 00:32 50 MLS/HR Losartan Potassium 100 mg DAILY PO 05/22/25 10:00 05/22/25 09:17 100 MG Amlodipine Besylate 5 mg DAILY PO 05/22/25 10:00 05/22/25 09:18 5 MG Fluticasone Propionate 50 mcg Q12HR EACHNOSTRI 05/22/25 22:00 05/22/25 22:29 50 MCG laboratory and microbiology Laboratory Tests 05/22/25 05:26 Test 05/22/25 05:26 Range/Units Serum Glucose 199 H 74-106 mg/dL Assessment/Plan Patient is a 60-year-old female who presented to the hospital with shortness of breath/cough and atypical chest discomfort (pleuritic). She mentions that she came to [place] around 5 days ago. She did take a bath and walked outside and started to feel bad including shortness of breath and cough. Cough was nonproductive. She decided to come to the hospital for its worsening. She mentions that she has been out of state for many years. Did not have insurance at out of state and was not following with any regular physicians. Does have baseline history of hypertension and diabetes. Has not been taking any medications regularly. Cardiology is involved for cardiac aspects of care. She mentions that few years ago while in [place], she was told she may have heart failure. But when she saw a sole splitter, she was told that heart failure is not confirmed. Does not take medications regularly. Does smoke cigarettes and marijuana. 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 Mentions dyspnea on exertion. Mentions some leg swellings occasionally. Mentions occasional orthopnea and PND. Morbidly obese. Sitting in bed and not in acute distress. No gross JVD. Mucosa is pink. No carotid bruit. Scattered rhonchi and wheezing it is heard in the lungs. Crackles can be heard in the lower part of the lungs. Cardiac: Regular, no thrill. Systolic murmur 3/6 in the apex is heard. No gross gallop. Bowel sounds are positive. No gross mass. Can not comment on the liver size secondary to body habitus. Extremities reveal 2+ edema bilaterally. Dorsalis pedis is 2+ bilateral. There was no gross lateralized neurologic deficit. Past medical history includes morbid obesity, hypertension, diabetes mellitus, old history of anemia, old history of repeated pneumonia, history of uterine fibroid/hysterectomy, status post and hernia repair. 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 There is questionable history of heart failure. Does smoke cigarettes/marijuana. Stopped meth in 2018 Is allergic to Lisinopril Family history includes hypertension and diabetes in mother and father. Father had lung cancer and mother had breast cancer. Hemoglobin: 11.9 - 10.9 - 10.9 WBC: 10.9 - 8.4 - 8.4 Creatinine: 1.4 - 1.22 - 1.76 Potassium: 4.0 - 3.6 - 4.3 Troponin (high sensitive): 41 - 44 - 45 BNP: 59.39 D-Dimer: 0.51 TSH: 0.69 UDS was positive for Cannabinoids Chest x-ray revealed: IMPRESSION: 1. Cardiomegaly and prominent pulmonary vascular markings bilaterally correlate clinically for possible congestive failure. CTA of lungs: FINDINGS: Pulmonary arteries: Examination is nondiagnostic for pulmonary embolism due to suboptimal contrast opacification of the pulmonary arteries. No large central pulmonary embolism visualized. Respiratory motion artifact in artifact associated with body habitus also limit evaluation for pulmonary emboli. Aorta: No aneurysm or visualized evidence of dissection given the limitations of the Examination. Cardiac: Heart size is within normal limits. Moderate coronary artery calcification. Mediastinum/leidy: Mildly prominent right lower paratracheal lymph node measures up to 1.6 x 1.3 cm, most likely reactive. Additional smaller mediastinal lymph nodes are seen. Lungs: Respiratory motion artifact limits evaluation. Scattered areas of subsegmental atelectasis are seen. No dense focal consolidation. No pneumothorax or pleural effusion. Subtle areas of ground-glass attenuation are seen, may be partly due to motion artifact. Infectious or inflammatory etiology or mild edema not excluded. 5 mm nodule in the right lower lobe (series 3 image 74). Chest wall: Visualized portions of the chest wall appear grossly unremarkable. Upper abdomen: Visualized structures in the upper abdomen are unremarkable, although evaluation of the parenchymal organs is limited on arterial phase images. Bones: No acute fracture or suspicious intraosseous lesions. IMPRESSION: 1. Nondiagnostic examination for pulmonary embolism due to the reasons described above. No large central pulmonary embolism visualized given the limitations of the examination. 2. Scattered areas of ground-glass attenuation, may be partially due to artifact. Infectious or inflammatory etiology or pulmonary edema not excluded. 3. 5 mm pulmonary nodule in the right lower lobe. Per Fleischner society recommendations, correlation with risk factors for lung cancer recommended. If the patient is high risk, 12 month follow-up CT could be considered. 4. Mildly prominent mediastinal lymph nodes, most likely reactive. Correlate with clinical findings. 5. Additional findings as described above. Repeat CTA of lungs revealed: FINDINGS: No filling defect in the main left and right pulmonary arteries. Segmental and subsegmental branches suboptimally characterized, no definitive defect identified. The trachea is patent. There is no pneumothorax 4 mm right upper lobe pulmonary nodule. 3 mm right upper lobe pulmonary nodule. 5 mm right lower lobe pulmonary nodule. 3 mm right middle lobe nodule. 4 mm right middle lobe pulmonary nodule. Bilateral atelectasis. No pleural effusion. Cardiomegaly. Pretracheal lymph node measuring 14 mm. No supraclavicular or axillary lymphadenopathy. No aggressive osseous process. Moderate to Some enhanced Thoracic degenerative disc disease IMPRESSION: No evidence for large pulmonary embolism. Pulmonary nodules up to 5 mm. Recommend follow-up per Fleischner society criteria. Cardiomegaly. Mediastinal lymphadenopathy which can be secondary to infectious, inflammatory, neoplastic etiologies. Other findings as described. Venous duplex of lower ext revealed: IMPRESSION: Limited study due to patient body habitus. The right popliteal vein and left common femoral vein not well- visualized. Given this limitation, no DVT seen in the other visualized veins. EKG revealed sinus tachycardia with nonspecific ST-T changes Tele reveals sinus tachycardia Echocardiogram revealed: Left ventricle: Mild concentric left ventricular hypertrophy was seen. LVEF was around 65%. Abnormal relaxation of left ventricular diastolic function was observed. There was no gross wall motion abnormality. Right ventricle was mildly dilated with normal systolic function. Both atria were mildly dilated. Aortic valve was trileaflet. There was no aortic insufficiency/stenosis. There was trace mitral/tricuspid regurgitation. Pulmonary valve did not reveal any insufficiency/stenosis. As there was no good tricuspid regurgitation jet, right ventricular systolic pressure could not be estimated. There was small pericardial effusion. Patient is a 60-year-old morbidly obese female who presented with 5 days of nonproductive cough. Presentation questions bronchitis. Her past history includes diabetes and noncompliance. There is questionable history of heart failure. Does not follow with physicians regularly. In exam there are findings questioning component of heart failure. High sensitive troponin has been minimally elevated (flat). Presentation is not considered ACS. Abnormal troponin most likely reflects demand physiology. Intercurrent URI could have contributed to some type of acute on chronic heart failure. May have some component of D-CHF. D-dimer was abnormal. Pulmonary Emboli was ruled out by CTA. Acute on chronic heart failure (Diastolic) URI Morbid obesity Hypertension Diabetes mellitus Noncompliance with medication and followups Abnormal D-Dimer Lung nodules Cardiac suggestion for management: Manage on telemetry Follow-up electrolytes and kidney function tests and correct abnormalities. Keep potassium above 4 and magnesium above 2 Evaluation and management of URI/bronchitis as per primary team Evaluation and management of lung nodules as per primary team / PCP and Pulmonary Cardiac candelario, can be followed as outpatient Lifestyle and risk factor modifications. Patient was counseled to be compliant with medications and followups. Patient was counseled to avoid substance abuse Further evaluation and management depends on the above and clinical course A total of 55 minutes was spent reviewing the patient record, examining the patient, making a diagnostic and therapeutic plan, discussing this plan with medical personnel, following up on diagnostic studies and following the patient for clinical stability excluding any and all procedures. At least 50% of this time was spent in direct, [id number] contact. Thank you for allowing me to participate in this patient's care. Further recommendations will depend on patient's clinical course. Please do not hesitate to contact me if you have any questions or concerns. This medical document was created using electronic medical record system with [employer] computerized dictation system. Although this document has been carefully reviewed, there may still be some phonetic and typographical errors. These areas are purely typographical due to the imperfection of the software programs, and do not reflect any compromise in the patient's medical care. Plan discussed with: Patient, Other (nurse) SUZY SCHULTZ MD May 23, 2025 08:14
[2025-05-23 10:40] LABS: Nucleated Red Blood Cells % 0.1 %
[2025-05-23 10:42] LABS: Hematocrit 38.8 % (36.0-46.0); Hemoglobin 12.2 g/dL (12.2-16.2); Mean Corpuscular Hemoglobin 19.7 pg (28.0-32.0); Mean Corpuscular Volume 62.7 fL (80.0-100.0)
[2025-05-23 10:50] LABS: Alanine Aminotransferase 10 U/L (7-40); Albumin 4.3 g/dL (3.2-4.8); Anion Gap 8 (5-15); BUN/Creatinine Ratio 14.1 (10.0-20.0); Bilirubin, Total 0.6 mg/dL (0.2-1.0); Blood Urea Nitrogen 23 mg/dL (9-23); Calcium 8.9 mg/dL (8.7-10.4); Carbon Dioxide 25 mmol/L (20-31); Chloride 104 mmol/L (98-107); Potassium 4.2 mmol/L (3.5-5.1); Sodium 137 mmol/L (136-145); Total Protein 7.9 g/dL (5.7-8.2)
[2025-05-23 10:51] LABS: Alkaline Phosphatase 142 U/L (46-116); Glucose 153 mg/dL (74-106)
--- NOTE | 2025-05-23 17:41 | DVHPN2 ---
Subjective having some sinus congestion Reviewed: H&P Changes from previous H/P or p: No Changes Respiratory: Cough, Shortness of breath Objective Vitals Vital Signs Date Time Temp Pulse Resp B/P (MAP) Pulse Ox O2 Delivery O2 Flow Rate FiO2 05/23/25 15:06 71 16 126/76 05/23/25 13:00 97.3 97 97.3 05/23/25 08:00 Nasal Cannula* 2 28 Intake/Output Intake and Output 05/23/25 05:00 Intake Total 1080 ml Balance 1080 ml Intake Oral 980 ml IV Total 100 ml # Voids 6 # Bowel Movements 1 General Appearance: Alert, Oriented X3 Cardiovascular: Regular rate, Normal S1, Normal S2 Abdomen: Normal bowel sounds Medications Current Medications Medications Dose Ordered Sig/Neeraj Route Start Time Stop Time Status Last Admin Dose Admin Acetaminophen 325 mg Q4HP PRN PO 05/20/25 22:30 05/23/25 02:14 325 MG Acetaminophen/ Hydrocodone Bitart 1 tab Q4HP PRN PO 05/20/25 22:30 05/23/25 10:45 1 TAB Temazepam 15 mg QHSP PRN PO 05/20/25 22:30 Ondansetron HCl 4 mg Q4HP PRN IV 05/20/25 22:30 05/21/25 04:21 4 MG Docusate Sodium 100 mg BIDPRN PRN PO 05/20/25 22:30 Enoxaparin Sodium 40 mg Q24H SC 05/21/25 21:00 05/22/25 22:27 40 MG Nitroglycerin 0.4 mg Q5MINP PRN SL 05/20/25 22:30 Hydralazine HCl 10 mg Q4HPRN PRN IV 05/21/25 01:00 05/22/25 14:02 10 MG Hydromorphone HCl 0.5 mg Q4HPRN PRN IV 05/21/25 01:00 05/23/25 15:06 0.5 MG Pantoprazole Sodium 40 mg DAILY@0600 PO 05/21/25 09:45 05/23/25 05:13 40 MG Doxycycline Hyclate 100 ml @ 50 mls/hr Q12H IV 05/21/25 12:00 05/23/25 15:07 50 MLS/HR Losartan Potassium 100 mg DAILY PO 05/22/25 10:00 05/23/25 10:44 100 MG Amlodipine Besylate 5 mg DAILY PO 05/22/25 10:00 05/23/25 10:44 5 MG Fluticasone Propionate 50 mcg Q12HR EACHNOSTRI 05/22/25 22:00 05/23/25 10:44 50 MCG Furosemide 40 mg DAILY PO 05/24/25 10:00 Cancel Laboratory Results Laboratory Tests 05/23/25 10:14 Chemistry Test 05/23/25 10:14 Albumin 4.3 g/dL (3.2-4.8) Calcium Level 8.9 mg/dL (8.7-10.4) Total Protein 7.9 g/dL (5.7-8.2) LFT Test 05/23/25 10:14 Alanine Aminotransferase (ALT) 10 U/L (7-40) Alkaline Phosphatase 142 U/L (46-116) H Aspartate Amino Transferase (AST) 15 U/L (13-40) Total Bilirubin 0.6 mg/dL (0.2-1.0) Urinalysis Test 05/21/25 01:47 Urine Color Colorless (Yellow) Urine Clarity Clear (Clear) Urine pH 6.0 (5.0-9.0) Urine Specific [place] 1.007 (1.001-1.035) Urine Protein Negative (Negative) Urine Ketones Negative (Negative) Urine Blood Negative /uL (Negative) Urine Nitrite Negative (Negative) Urine Bilirubin Negative (Negative) Urine Urobilinogen Normal mg/dL (Negative) Urine Leukocyte Esterase Negative /uL (Negative) Urine RBC <1 /hpf (0 - 4) Urine Microscopic WBC /HPF (0-5) Urine Squamous Epithelial Cells Few /hpf (<5) Urine Bacteria None seen /hpf (None Seen) Urine Glucose Normal mg/dL (Normal) Assessment/Plan Assessment/Plan Acute upper respiratory infection Acute bronchitis Rule out heart failure Morbid obesity Type 2 diabetes Hypertension NSTEMI type 2 Noncompliance with medications Continue IV abx nasal Echo pending 05/23 Creat trending up holding lasix Plan discussed with: Patient My Orders Orders - CAMERON BARNES MD Procedure Category Date Status Time Basic Metabolic Panel LAB 05/24/25 Verified 05:00 Basic Metabolic Panel LAB 05/25/25 Verified 05:00 Basic Metabolic Panel LAB 05/26/25 Verified 05:00 Basic Metabolic Panel LAB 05/27/25 Verified 05:00 Basic Metabolic Panel LAB 05/28/25 Verified 05:00 Basic Metabolic Panel LAB 05/29/25 Verified 05:00 Basic Metabolic Panel LAB 05/30/25 Verified 05:00 Date of Service: May 23, 2025 Billing Provider: CAMERON BARNES MD Common Visit Codes: [id number] INP/OBS CARE(HIGH) CAMERON BARNES MD May 23, 2025 17:40
--- NOTE | 2025-05-23 21:04 | DVHPN2 ---
Subjective DOS: 05/23/2025 Patient seen and examined at bedside. Breathing comfortably on room air. Overnight events reviewed. Reviewed: H&P Changes from previous H/P or p: No Changes Respiratory: Cough, Shortness of breath Objective Vitals Vital Signs Date Time Temp Pulse Resp B/P (MAP) Pulse Ox O2 Delivery O2 Flow Rate FiO2 05/23/25 17:00 97.7 78 23 151/80 (103) 97 97.7 05/23/25 08:00 Nasal Cannula* 2 28 Intake/Output Intake and Output 05/23/25 07:00 Intake Total 1080 ml Balance 1080 ml Intake Oral 980 ml IV Total 100 ml # Voids 6 # Bowel Movements 1 Exam Gen.: Patient lying in bed in no apparent distress. Breathing on room air. Head: Normocephalic, atraumatic. Eyes: EOMI/PERRLA. Ears: Normal hearing. Normal anatomy. Neck/trachea: Trachea midline, supple. Nose: Normal external anatomy. Mouth: Moist mucous membranes. Chest: Decreased air entry bilaterally. No wheezing or rhonchi. Cardiovascular: Positive S1, positive S2. Regular rate and rhythm. Abdomen: Positive bowel sounds in all 4 quadrants. Soft, non-tender, non- distended. : Deferred. Rectal: Deferred. Skin: Warm, dry. Intact. Extremities: 2+ radial pulses bilaterally. No lower extremity edema. Neuro: Awake, alert, oriented x3. No gross motor or sensory deficits. Cranial nerves II through XII intact. Gait not assessed. General Appearance: Alert, Oriented X3 Cardiovascular: Regular rate, Normal S1, Normal S2 Abdomen: Normal bowel sounds Medications Current Medications Medications Dose Ordered Sig/[facility] Route Start Time Stop Time Status Last Admin Dose Admin Acetaminophen 325 mg Q4HP PRN PO 05/20/25 22:30 05/23/25 02:14 325 MG Acetaminophen/ Hydrocodone Bitart 1 tab Q4HP PRN PO 05/20/25 22:30 05/23/25 18:53 1 TAB Temazepam 15 mg QHSP PRN PO 05/20/25 22:30 Ondansetron HCl 4 mg Q4HP PRN IV 05/20/25 22:30 05/21/25 04:21 4 MG Docusate Sodium 100 mg BIDPRN PRN PO 05/20/25 22:30 Enoxaparin Sodium 40 mg Q24H SC 05/21/25 21:00 05/23/25 20:57 40 MG Nitroglycerin 0.4 mg Q5MINP PRN SL 05/20/25 22:30 Hydralazine HCl 10 mg Q4HPRN PRN IV 05/21/25 01:00 05/22/25 14:02 10 MG Hydromorphone HCl 0.5 mg Q4HPRN PRN IV 05/21/25 01:00 05/23/25 15:06 0.5 MG Pantoprazole Sodium 40 mg DAILY@0600 PO 05/21/25 09:45 05/23/25 05:13 40 MG Doxycycline Hyclate 100 ml @ 50 mls/hr Q12H IV 05/21/25 12:00 05/23/25 15:07 50 MLS/HR Losartan Potassium 100 mg DAILY PO 05/22/25 10:00 05/23/25 10:44 100 MG Amlodipine Besylate 5 mg DAILY PO 05/22/25 10:00 05/23/25 10:44 5 MG Fluticasone Propionate 50 mcg Q12HR EACHNOSTRI 05/22/25 22:00 05/23/25 10:44 50 MCG Furosemide 40 mg DAILY PO 05/24/25 10:00 Cancel Laboratory Results Laboratory Tests 05/23/25 10:14 Chemistry Test 05/23/25 10:14 Albumin 4.3 g/dL (3.2-4.8) Calcium Level 8.9 mg/dL (8.7-10.4) Total Protein 7.9 g/dL (5.7-8.2) LFT Test 05/23/25 10:14 Alanine Aminotransferase (ALT) 10 U/L (7-40) Alkaline Phosphatase 142 U/L (46-116) H Aspartate Amino Transferase (AST) 15 U/L (13-40) Total Bilirubin 0.6 mg/dL (0.2-1.0) Urinalysis Test 05/21/25 01:47 Urine Color Colorless (Yellow) Urine Clarity Clear (Clear) Urine pH 6.0 (5.0-9.0) Urine Specific [place] 1.007 (1.001-1.035) Urine Protein Negative (Negative) Urine Ketones Negative (Negative) Urine Blood Negative /uL (Negative) Urine Nitrite Negative (Negative) Urine Bilirubin Negative (Negative) Urine Urobilinogen Normal mg/dL (Negative) Urine Leukocyte Esterase Negative /uL (Negative) Urine RBC <1 /hpf (0 - 4) Urine Microscopic WBC /HPF (0-5) Urine Squamous Epithelial Cells Few /hpf (<5) Urine Bacteria None seen /hpf (None Seen) Urine Glucose Normal mg/dL (Normal) Assessment/Plan Assessment/Plan Impression: Acute bronchitis Pulmonary nodules, multiple largest 5 mm in size Enlarged mediastinal lymph node Atelectasis Mediastinal lymphadenopathy NSTEMI type 2 Super morbid obesity, BMI 64.2 Noncompliance with medications Seasonal allergies Nicotine dependence Events: Breathing on room air Supplemental oxygen PRN No distress. Continue antibiotics Continue Flonase Incentive spirometry Blood pressure control Recommend outpatient sleep study due to high risk for COOPER. Recommend repeat CT chest in 6 months for mediastinal lymphadenopathy and pulmonary nodule surveillance. CT angio chest demonstrates no e/o pulmonary embolism. Multiple pulmonary nodules measuring up to 5 mm. Cardiomegaly. Mediastinal lymphadenopathy and bilateral atelectasis. No pleural effusion. Patient is stable for discharge from the pulmonary standpoint. Disposition per hospitalist. Follow up in Pulmonary Clinic 2-3 weeks after discharge. Labs and imaging reviewed. Rest of plan as noted below. Plan: Supplemental oxygen PRN Titrate to keep O2 sats above 92%. Flonase for seasonal allergies Continue antibiotics Incentive spirometry d/t atelectasis Blood pressure control Follow up Cardiology recommendations Monitor renal function. Monitor electrolytes. Supplement as necessary. Monitor ins and outs. Pain control Avoid oversedation Antiemetic PRN. Smoking cessation discussed - pt is planning to quit. Recommend diet and lifestyle modifications for weight reduction Morbid obesity complicates all care Patient counseled on adherence to therapy and compliance with medications. GI/DVT prophylaxis. Prognosis: Guarded given patient's multiple co-morbidities. Rest of plan per hospitalist and other consultants. Thank you, Dr. Head, for allowing me to participate in this patient's care. Further recommendations will depend on the patient's clinical course. Please do not hesitate to contact me if you have any questions or concerns. This medical document was created using an electronic medical record system with [employer] system. Although these documentations are being carefully reviewed, there may still be some phonetic and typographical changes. The errors are purely typographical, due to imperfection on the software program, and do not reflect any compromise in the patient's medical care. Plan discussed with: Patient, Other (RN Azucena) Visit Coding Pulmonary Billing Provider: WARREN PARR MD Date of Service if different f: May 23, 2025 Common Visit Codes: [id number] INP/OBS CARE(HIGH) WARREN PARR MD May 23, 2025 21:03
[2025-05-24 01:00] VITALS: BP 157/75; PULSE 82; RESP 19; TEMP 97.9; O2SAT 100
[2025-05-24 05:00] VITALS: BP 107/68; PULSE 65; RESP 19; TEMP 97.8; O2SAT 100
--- NOTE | 2025-05-24 06:11 | DVHPN2 ---
Progress Note - Dictate Date Seen: May 24, 2025 Medical Necessity Reason Pt with a Central, PICC or Fol: No vital signs Vital Sign Date Time Temp Pulse Resp B/P (MAP) Pulse Ox O2 Delivery O2 Flow Rate FiO2 05/24/25 05:00 97.8 65 19 107/68 (81) 100 97.8 05/23/25 20:00 Nasal Cannula* 2 28 Total Intake and Output 05/23/25 05/23/25 05/24/25 15:00 23:00 07:00 Intake Total 770 ml 750 ml Balance 770 ml 750 ml medications Current Medications Medications Dose Ordered Sig/Neeraj Route Start Time Stop Time Status Last Admin Dose Admin Acetaminophen 325 mg Q4HP PRN PO 05/20/25 22:30 05/23/25 02:14 325 MG Acetaminophen/ Hydrocodone Bitart 1 tab Q4HP PRN PO 05/20/25 22:30 05/23/25 18:53 1 TAB Temazepam 15 mg QHSP PRN PO 05/20/25 22:30 Ondansetron HCl 4 mg Q4HP PRN IV 05/20/25 22:30 05/21/25 04:21 4 MG Docusate Sodium 100 mg BIDPRN PRN PO 05/20/25 22:30 Enoxaparin Sodium 40 mg Q24H SC 05/21/25 21:00 05/23/25 20:57 40 MG Nitroglycerin 0.4 mg Q5MINP PRN SL 05/20/25 22:30 Hydralazine HCl 10 mg Q4HPRN PRN IV 05/21/25 01:00 05/22/25 14:02 10 MG Hydromorphone HCl 0.5 mg Q4HPRN PRN IV 05/21/25 01:00 05/23/25 23:17 0.5 MG Pantoprazole Sodium 40 mg DAILY@0600 PO 05/21/25 09:45 05/24/25 06:03 40 MG Doxycycline Hyclate 100 ml @ 50 mls/hr Q12H IV 05/21/25 12:00 05/23/25 23:58 50 MLS/HR Losartan Potassium 100 mg DAILY PO 05/22/25 10:00 05/23/25 10:44 100 MG Amlodipine Besylate 5 mg DAILY PO 05/22/25 10:00 05/23/25 10:44 5 MG Fluticasone Propionate 50 mcg Q12HR EACHNOSTRI 05/22/25 22:00 05/23/25 22:38 50 MCG Furosemide 40 mg DAILY PO 05/24/25 10:00 Cancel laboratory and microbiology Laboratory Tests 05/23/25 10:14 Test 05/23/25 10:14 Range/Units Serum Glucose 153 H 74-106 mg/dL Assessment/Plan Patient is a 60-year-old female who presented to the hospital with shortness of breath/cough and atypical chest discomfort (pleuritic). She mentions that she came to [place] around 5 days ago. She did take a bath and walked outside and started to feel bad including shortness of breath and cough. Cough was nonproductive. She decided to come to the hospital for its worsening. She mentions that she has been out of state for many years. Did not have insurance at out of state and was not following with any regular physicians. Does have baseline history of hypertension and diabetes. Has not been taking any medications regularly. Cardiology is involved for cardiac aspects of care. She mentions that few years ago while in [place], she was told she may have heart failure. But when she saw a associate pastor, she was told that heart failure is not confirmed. Does not take medications regularly. Does smoke cigarettes and marijuana. 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 Mentions dyspnea on exertion. Mentions some leg swellings occasionally. Mentions occasional orthopnea and PND. Morbidly obese. Sitting in bed and not in acute distress. No gross JVD. Mucosa is pink. No carotid bruit. Scattered rhonchi and wheezing it is heard in the lungs. Crackles can be heard in the lower part of the lungs. Cardiac: Regular, no thrill. Systolic murmur 3/6 in the apex is heard. No gross gallop. Bowel sounds are positive. No gross mass. Can not comment on the liver size secondary to body habitus. Extremities reveal 2+ edema bilaterally. Dorsalis pedis is 2+ bilateral. There was no gross lateralized neurologic deficit. Past medical history includes morbid obesity, hypertension, diabetes mellitus, old history of anemia, old history of repeated pneumonia, history of uterine fibroid/hysterectomy, status post and hernia repair. 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 There is questionable history of heart failure. Does smoke cigarettes/marijuana. Stopped meth in 2018 Is allergic to Lisinopril Family history includes hypertension and diabetes in mother and father. Father had lung cancer and mother had breast cancer. Hemoglobin: 11.9 - 10.9 - 10.9 - 12.2 WBC: 10.9 - 8.4 - 8.4 - 7.5 Creatinine: 1.4 - 1.22 - 1.76 - 1.63 Potassium: 4.0 - 3.6 - 4.3 - 4.2 Troponin (high sensitive): 41 - 44 - 45 BNP: 59.39 D-Dimer: 0.51 TSH: 0.69 UDS was positive for Cannabinoids Chest x-ray revealed: IMPRESSION: 1. Cardiomegaly and prominent pulmonary vascular markings bilaterally correlate clinically for possible congestive failure. CTA of lungs: FINDINGS: Pulmonary arteries: Examination is nondiagnostic for pulmonary embolism due to suboptimal contrast opacification of the pulmonary arteries. No large central pulmonary embolism visualized. Respiratory motion artifact in artifact associated with body habitus also limit evaluation for pulmonary emboli. Aorta: No aneurysm or visualized evidence of dissection given the limitations of the Examination. Cardiac: Heart size is within normal limits. Moderate coronary artery calcification. Mediastinum/leidy: Mildly prominent right lower paratracheal lymph node measures up to 1.6 x 1.3 cm, most likely reactive. Additional smaller mediastinal lymph nodes are seen. Lungs: Respiratory motion artifact limits evaluation. Scattered areas of subsegmental atelectasis are seen. No dense focal consolidation. No pneumothorax or pleural effusion. Subtle areas of ground-glass attenuation are seen, may be partly due to motion artifact. Infectious or inflammatory etiology or mild edema not excluded. 5 mm nodule in the right lower lobe (series 3 image 74). Chest wall: Visualized portions of the chest wall appear grossly unremarkable. Upper abdomen: Visualized structures in the upper abdomen are unremarkable, although evaluation of the parenchymal organs is limited on arterial phase images. Bones: No acute fracture or suspicious intraosseous lesions. IMPRESSION: 1. Nondiagnostic examination for pulmonary embolism due to the reasons described above. No large central pulmonary embolism visualized given the limitations of the examination. 2. Scattered areas of ground-glass attenuation, may be partially due to artifact. Infectious or inflammatory etiology or pulmonary edema not excluded. 3. 5 mm pulmonary nodule in the right lower lobe. Per Fleischner society recommendations, correlation with risk factors for lung cancer recommended. If the patient is high risk, 12 month follow-up CT could be considered. 4. Mildly prominent mediastinal lymph nodes, most likely reactive. Correlate with clinical findings. 5. Additional findings as described above. Repeat CTA of lungs revealed: FINDINGS: No filling defect in the main left and right pulmonary arteries. Segmental and subsegmental branches suboptimally characterized, no definitive defect identified. The trachea is patent. There is no pneumothorax 4 mm right upper lobe pulmonary nodule. 3 mm right upper lobe pulmonary nodule. 5 mm right lower lobe pulmonary nodule. 3 mm right middle lobe nodule. 4 mm right middle lobe pulmonary nodule. Bilateral atelectasis. No pleural effusion. Cardiomegaly. Pretracheal lymph node measuring 14 mm. No supraclavicular or axillary lymphadenopathy. No aggressive osseous process. Moderate to Some enhanced Thoracic degenerative disc disease IMPRESSION: No evidence for large pulmonary embolism. Pulmonary nodules up to 5 mm. Recommend follow-up per Fleischner society criteria. Cardiomegaly. Mediastinal lymphadenopathy which can be secondary to infectious, inflammatory, neoplastic etiologies. Other findings as described. Venous duplex of lower ext revealed: IMPRESSION: Limited study due to patient body habitus. The right popliteal vein and left common femoral vein not well- visualized. Given this limitation, no DVT seen in the other visualized veins. EKG revealed sinus tachycardia with nonspecific ST-T changes Tele reveals sinus tachycardia Echocardiogram revealed: Left ventricle: Mild concentric left ventricular hypertrophy was seen. LVEF was around 65%. Abnormal relaxation of left ventricular diastolic function was observed. There was no gross wall motion abnormality. Right ventricle was mildly dilated with normal systolic function. Both atria were mildly dilated. Aortic valve was trileaflet. There was no aortic insufficiency/stenosis. There was trace mitral/tricuspid regurgitation. Pulmonary valve did not reveal any insufficiency/stenosis. As there was no good tricuspid regurgitation jet, right ventricular systolic pressure could not be estimated. There was small pericardial effusion. Patient is a 60-year-old morbidly obese female who presented with 5 days of nonproductive cough. Presentation questions bronchitis. Her past history includes diabetes and noncompliance. There is questionable history of heart failure. Does not follow with physicians regularly. In exam there are findings questioning component of heart failure. High sensitive troponin has been minimally elevated (flat). Presentation is not considered ACS. Abnormal troponin most likely reflects demand physiology. Intercurrent URI could have contributed to some type of acute on chronic heart failure. May have some component of D-CHF. D-dimer was abnormal. Pulmonary Emboli was ruled out by CTA. Acute on chronic heart failure (Diastolic) URI Morbid obesity Hypertension Diabetes mellitus Noncompliance with medication and followups Abnormal D-Dimer Lung nodules Cardiac suggestion for management: Manage on telemetry Follow-up electrolytes and kidney function tests and correct abnormalities. Keep potassium above 4 and magnesium above 2 Evaluation and management of URI/bronchitis as per primary team Evaluation and management of lung nodules as per primary team / PCP and Pulmonary Cardiac candelario, can be followed as outpatient Lifestyle and risk factor modifications. Patient was counseled to be compliant with medications and followups. Patient was counseled to avoid substance abuse Further evaluation and management depends on the above and clinical course A total of 55 minutes was spent reviewing the patient record, examining the patient, making a diagnostic and therapeutic plan, discussing this plan with medical personnel, following up on diagnostic studies and following the patient for clinical stability excluding any and all procedures. At least 50% of this time was spent in direct, [id number] contact. Thank you for allowing me to participate in this patient's care. Further recommendations will depend on patient's clinical course. Please do not hesitate to contact me if you have any questions or concerns. This medical document was created using electronic medical record system with [employer] computerized dictation system. Although this document has been carefully reviewed, there may still be some phonetic and typographical errors. These areas are purely typographical due to the imperfection of the software programs, and do not reflect any compromise in the patient's medical care. Plan discussed with: Patient, Other (nurse) SUZY SCHULTZ MD May 24, 2025 06:11
[2025-05-24 07:06] LABS: Chloride 106 mmol/L (98-107); Potassium 4.3 mmol/L (3.5-5.1); Sodium 140 mmol/L (136-145)
[2025-05-24 07:07] LABS: Anion Gap 8 (5-15); Carbon Dioxide 26 mmol/L (20-31)
[2025-05-24 07:13] LABS: BUN/Creatinine Ratio 15.3 (10.0-20.0); Blood Urea Nitrogen 22 mg/dL (9-23)
[2025-05-24 07:25] LABS: Calcium 8.6 mg/dL (8.7-10.4); Glucose 172 mg/dL (74-106)
[2025-05-24 07:30] VITALS: PULSE 73; PULSE 75; RESP 18; O2SAT 100
[2025-05-24 09:00] VITALS: BP 155/89; PULSE 83; RESP 19; TEMP 98.2; O2SAT 98
[2025-05-24] MEDS ORDERED: FUROSEMIDE 40 MG TAB PO SCH (10:00)
[2025-05-24] MEDS ORDERED: DOXY-286 PO (10:35)
[2025-05-24] MEDS ORDERED: FLUT50SP EACHNOSTRI (10:35)
[2025-05-24 10:59] VITALS: BP 155/89; PULSE 83; RESP 19; TEMP 98.2; O2SAT 98
[2025-05-24] MEDS ORDERED: AML5T PO (12:47)
[2025-05-24] MEDS ORDERED: LOSA-534 PO (12:47)
[2025-05-24 13:00] VITALS: BP 123/69; PULSE 68; RESP 16; TEMP 98.4; O2SAT 99
--- NOTE | 2025-05-24 13:23 | DVHDS2 ---
Discharge Summary Date of Admission May 20, 2025 at 22:17 Date of Discharge: May 24, 2025 Labs/Diagnostic Data: Laboratory Results Test 05/24/25 06:02 05/23/25 10:14 05/22/25 05:26 05/21/25 09:17 Sodium Level 140 mmol/L (136-145) Potassium Level 4.3 mmol/L (3.5-5.1) Chloride Level 106 mmol/L (98-107) Carbon Dioxide Level 26 mmol/L (20-31) Anion Gap 8 (5-15) Blood Urea Nitrogen 22 mg/dL (9-23) Creatinine 1.44 mg/dL (0.550-1.02) Glomerular Filtration Rate Calc 41 mL/min (>90) BUN/Creatinine Ratio 15.3 (10.0-20.0) Serum Glucose 172 mg/dL (74-106) Calcium Level 8.6 mg/dL (8.7-10.4) White Blood Count 7.5 10^3/uL (4.4-10.8) Red Blood Count 6.19 10^6/uL (4.0-5.20) Hemoglobin 12.2 g/dL (12.2-16.2) Hematocrit 38.8 % (36.0-46.0) Mean Corpuscular Volume 62.7 fL (80.0-100.0) Mean Corpuscular Hemoglobin 19.7 pg (28.0-32.0) Mean Corpuscular Hemoglobin Concent 31.4 g/dL (32.0-36.0) Red Cell Distribution Width 19.6 % (11.8-14.3) Platelet Count 210 10^3/uL (140-450) Mean Platelet Volume 9.2 fL (6.9-10.8) Neutrophils (%) (Auto) 66.0 % (37.0-80.0) Lymphocytes (%) (Auto) 23.8 % (10.0-50.0) Monocytes (%) (Auto) 5.5 % (0.0-12.0) Eosinophils (%) (Auto) 3.7 % (0.0-7.0) Basophils (%) (Auto) 1.0 % (0.0-2.0) Neutrophils # (Auto) 5.0 10 ^3/uL (1.6-8.6) Lymphocytes # (Auto) 1.8 10 ^3/uL (0.4-5.4) Monocytes # (Auto) 0.4 10 ^3/uL (0-1.3) Eosinophils # (Auto) 0.3 10 ^3/uL (0-0.8) Basophils # (Auto) 0.1 10 ^3/uL (0-0.2) Nucleated Red Blood Cells 0.1 % Total Bilirubin 0.6 mg/dL (0.2-1.0) Aspartate Amino Transferase (AST) 15 U/L (13-40) Alanine Aminotransferase (ALT) 10 U/L (7-40) Alkaline Phosphatase 142 U/L (46-116) Total Protein 7.9 g/dL (5.7-8.2) Albumin 4.3 g/dL (3.2-4.8) Platelet Estimate [place] Large Platelets Few Hypochromasia (manual) Moderate Microcytosis Moderate Ovalocytes Few Thyroid Stimulating Hormone (TSH) 0.69 uIU/mL (0.55-4.78) D-Dimer, Quantitative 0.51 mg/L FEU (0.0-0.49) B-Type Natriuretic Peptide 59.39 pg/mL (0-100) Test 05/21/25 02:12 05/21/25 01:47 05/20/25 21:07 Stomatocytes Few Triglycerides Level 116 mg/dL (< 150) Cholesterol Level 162 mg/dL (< 200) LDL Cholesterol 121 mg/dL (< 100) HDL Cholesterol 29 mg/dL (40-59) Urine Color Colorless (Yellow) Urine Clarity Clear (Clear) Urine pH 6.0 (5.0-9.0) Urine Specific [place] 1.007 (1.001-1.035) Urine Protein Negative (Negative) Urine Ketones Negative (Negative) Urine Blood Negative /uL (Negative) Urine Nitrite Negative (Negative) Urine Bilirubin Negative (Negative) Urine Urobilinogen Normal mg/dL (Negative) Urine Leukocyte Esterase Negative /uL (Negative) Urine RBC <1 /hpf (0 - 4) Urine Microscopic WBC /HPF (0-5) Urine Squamous Epithelial Cells Few /hpf (<5) Urine Bacteria None seen /hpf (None Seen) Urine Glucose Normal mg/dL (Normal) Urine Opiates Screen Neg (NEGATIVE) Urine Fentanyl Screen Neg (NEGATIVE) Urine Barbiturates Screen Neg (NEGATIVE) Urine Phencyclidine Screen Neg (NEGATIVE) Urine Amphetamines Screen Neg (NEGATIVE) Urine Benzodiazepines Screen Neg (NEGATIVE) Urine Cocaine Screen Neg (NEGATIVE) Urine Cannabinoids Screen Pos (NEGATIVE) Troponin I High Sensitivity 45 ng/L (</=34) Other Laboratory Tests 05/24/25 06:02 05/23/25 10:14 Brief Hx & Hospital Course: 60-year-old female comes to the hospital for 3-4 days of shortness of breaths and congestion and having a cold During hospital stay was diuresed and stopped due to worsening creatinine On abx for pneumonia/copd exacerbation she was off oxygen and did well Condition at Discharge: Good Final Diagnosis/Problems List acute pneumonia COPD exacerbation Acute diastolic HF exacerbation Discharge Disposition: Home Discharge Instruct/Medications Diet: Regular Activity: No Restrictions, As Tolerated Follow Up/Referral: PCp in 7 days Medications: doxycycline, flonase Scheduled Amlodipine Besylate (Amlodipine Besylate), 1 TAB PO DAILY, (Reported) Amlodipine Besylate (Norvasc Tablet), 5 MG PO DAILY Doxycycline Hyclate (Doxycycline Hyclate), 1 TAB PO BID Fluticasone Propionate (Nasal) (Fluticasone Propionate), 50 MCG EACHNOSTRI Q12HR Furosemide (Furosemide), 1 TAB PO DAILY, (Reported) Losartan Potassium (Losartan Potassium), 1 TAB PO DAILY, (Reported) Losartan Potassium (Losartan Potassium), 100 MG PO DAILY Metformin Hydrochloride (Metformin Hcl), 1,000 MG PO BID, (Reported) Discharge Statement: "Patient was advised to return to the ER or call 911 if any headaches, dizziness, shortness of breath, chest pain, abdominal pain, bleeding, fevers, or worsening of medical condition. Patient was counseled about treatment plan, medications, possible side effects, patientverbalized understanding. All questions were answered to the best of my ability. This discharge took greater then 30 minutes in planning, reviewing documentation, counseling the patient, and discussing with other team members." ASSESSMENT ASSESSMENT Assessment acute pneumonia COPD exacerbation Date of Service: May 24, 2025 Billing Provider: CAMERON BARNES MD Common Visit Codes: 80092-IPL/OBS DISCH DAY >30min CAMERON BARNES MD May 24, 2025 13:23
--- NOTE | 2025-05-24 21:09 | DVHPN2 ---
Subjective DOS: 05/24/2025 Patient seen and examined at bedside. Breathing comfortably on room air. Overnight events reviewed. Reviewed: H&P Changes from previous H/P or p: No Changes Respiratory: Cough, Shortness of breath Objective Vitals Vital Signs Date Time Temp Pulse Resp B/P (MAP) Pulse Ox O2 Delivery O2 Flow Rate FiO2 05/24/25 13:00 98.4 68 16 123/69 (87) 99 98.4 05/24/25 07:30 Room Air* 0 21 Intake/Output Intake and Output 05/24/25 07:00 Intake Total 1520 ml Balance 1520 ml Intake Oral 1320 ml IV Total 200 ml # Voids 5 # Bowel Movements 1 Exam Gen.: Patient lying in bed in no apparent distress. Breathing on room air. Head: Normocephalic, atraumatic. Eyes: EOMI/PERRLA. Ears: Normal hearing. Normal anatomy. Neck/trachea: Trachea midline, supple. Nose: Normal external anatomy. Mouth: Moist mucous membranes. Chest: Decreased air entry bilaterally. No wheezing or rhonchi. Cardiovascular: Positive S1, positive S2. Regular rate and rhythm. Abdomen: Positive bowel sounds in all 4 quadrants. Soft, non-tender, non- distended. : Deferred. Rectal: Deferred. Skin: Warm, dry. Intact. Extremities: 2+ radial pulses bilaterally. No lower extremity edema. Neuro: Awake, alert, oriented x3. No gross motor or sensory deficits. Cranial nerves II through XII intact. Gait not assessed. General Appearance: Alert, Oriented X3 Cardiovascular: Regular rate, Normal S1, Normal S2 Abdomen: Normal bowel sounds Medications Current Medications Medications Dose Ordered Sig/Neeraj Route Start Time Stop Time Status Last Admin Dose Admin Furosemide 40 mg DAILY PO 05/24/25 10:00 Cancel Laboratory Results Laboratory Tests 05/23/25 10:14 05/24/25 06:02 Chemistry Test 05/24/25 06:02 Calcium Level 8.6 mg/dL (8.7-10.4) L Urinalysis Test 05/21/25 01:47 Urine Color Colorless (Yellow) Urine Clarity Clear (Clear) Urine pH 6.0 (5.0-9.0) Urine Specific [place] 1.007 (1.001-1.035) Urine Protein Negative (Negative) Urine Ketones Negative (Negative) Urine Blood Negative /uL (Negative) Urine Nitrite Negative (Negative) Urine Bilirubin Negative (Negative) Urine Urobilinogen Normal mg/dL (Negative) Urine Leukocyte Esterase Negative /uL (Negative) Urine RBC <1 /hpf (0 - 4) Urine Microscopic WBC /HPF (0-5) Urine Squamous Epithelial Cells Few /hpf (<5) Urine Bacteria None seen /hpf (None Seen) Urine Glucose Normal mg/dL (Normal) Assessment/Plan Assessment/Plan Impression: Acute bronchitis Pulmonary nodules, multiple largest 5 mm in size Enlarged mediastinal lymph node Atelectasis Mediastinal lymphadenopathy NSTEMI type 2 Super morbid obesity, BMI 64.2 Noncompliance with medications Seasonal allergies Nicotine dependence Events: Breathing on room air Supplemental oxygen PRN No distress. Continue antibiotics - complete course Complete steroid course Continue Flonase Incentive spirometry Blood pressure control Recommend outpatient sleep study due to high risk for COOPER. STOP-BANG score of 5. Recommend repeat CT chest in 8 to 12 weeks to document resolution of opacities and for mediastinal lymphadenopathy and pulmonary nodule surveillance. CT angio chest demonstrates no e/o pulmonary embolism. Multiple pulmonary nodules measuring up to 5 mm. Cardiomegaly. Mediastinal lymphadenopathy and bilateral atelectasis. No pleural effusion. (Patient with positive family history of father with lung cancer.) Patient is stable for discharge from the pulmonary standpoint. Disposition per hospitalist. Follow up in Pulmonary Clinic 2-3 weeks after discharge. Labs and imaging reviewed. Rest of plan as noted below. Plan: Supplemental oxygen PRN Titrate to keep O2 sats above 92%. Flonase for seasonal allergies Continue antibiotics Incentive spirometry d/t atelectasis Complete steroids Blood pressure control Follow up Cardiology recommendations Monitor renal function. Monitor electrolytes. Supplement as necessary. Monitor ins and outs. Pain control Avoid oversedation Antiemetic PRN. Smoking cessation discussed - pt is planning to quit. Recommend diet and lifestyle modifications for weight reduction Morbid obesity complicates all care Patient counseled on adherence to therapy and compliance with medications. GI/DVT prophylaxis. Prognosis: Guarded given patient's multiple co-morbidities. Rest of plan per hospitalist and other consultants. Thank you, Dr. Head, for allowing me to participate in this patient's care. Further recommendations will depend on the patient's clinical course. Please do not hesitate to contact me if you have any questions or concerns. This medical document was created using an electronic medical record system with Dragon computerized dictation system. Although these documentations are being carefully reviewed, there may still be some phonetic and typographical changes. The errors are purely typographical, due to imperfection on the software program, and do not reflect any compromise in the patient's medical care. Plan discussed with: Patient, Other (LUZ Rainey) Visit Coding Pulmonary Billing Provider: WARREN PARR MD Date of Service if different f: May 24, 2025 Common Visit Codes: 29108-[id number] INP/OBS CARE(HIGH) WARREN PARR MD May 24, 2025 21:09
== END 2025-05-24 13:38 | disposition home or self-care (01) | DRG 194 ==
LOC: ER 16:01 → OVERFLOW 22:17 → TELE-WESTW 05-21 09:37
PROVIDERS: ADMIT Hospitalist; ATTEND Hospitalist
DX: I11.0 Hypertensive heart disease with heart failure (principal); J15.9 Unspecified bacterial pneumonia; I21.A1 Myocardial infarction type 2; J44.0 Chronic obstructive pulmonary disease with (acute) lower respiratory infection; Z68.44 Body mass index [BMI] 60.0-69.9, adult; J44.1 Chronic obstructive pulmonary disease with (acute) exacerbation; E11.9 Type 2 diabetes mellitus without complications; I50.31 Acute diastolic (congestive) heart failure; J20.9 Acute bronchitis, unspecified; E66.01 Morbid (severe) obesity due to excess calories; J98.11 Atelectasis; J30.2 Other seasonal allergic rhinitis; R59.0 Localized enlarged lymph nodes; F17.210 Nicotine dependence, cigarettes, uncomplicated; Z88.5 Allergy status to narcotic agent; Z90.710 Acquired absence of both cervix and uterus; Z91.148 Patient's other noncompliance with medication regimen for other reason; Z79.899 Other long term (current) drug therapy; Z79.84 Long term (current) use of oral hypoglycemic drugs; Z82.49 Family history of ischemic heart disease and other diseases of the circulatory system; Z83.3 Family history of diabetes mellitus; Z80.3 Family history of malignant neoplasm of breast; Z80.1 Family history of malignant neoplasm of trachea, bronchus and lung; Z88.8 Allergy status to other drugs, medicaments and biological substances
CPT/HCPCS: 36415; 71045; 71275; 80048; 80053; 80061; 80307; 81001; 83880; 84443; 84484; 85025; 85379; 93005; 93306; 93970; 96372; 96374; 99291; 99292; G0378; J2405